=== PATIENT | male | born 1965 | race Caucasian/White ===

== ENCOUNTER 2020-07-25 07:32 | Day surgery (SDC) | payer BC, SELFPAY ==
[2020-07-20 15:20] VITALS: BMI 26.9
--- NOTE | 2020-07-24 09:46 | P.CONAN_ITS ---
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 Surgical History Surgical History Hx of colonoscopy Social History Social History Smoking Status: Former smoker Smoking Quit Date: > 10 yrs ago Use of substances other than those prescribed or required for medical reasons: No Advance Directives: No Meds Allergies Allergy/AdvReac Type Severity Reaction Status Date / Time Codeine Sulfate Allergy Unknown nauseated Uncoded 04/11/20 00:00 Home Medications Medication Instructions Recorded Confirmed Type acetaminophen [Tylenol] 650 mg PO Q6H PRN 07/20/20 07/20/20 History ascorbic acid (vitamin C) [Vitamin 500 mg PO DAILY 07/20/20 07/20/20 History C-Madison Hips-Acerola] setnxeb-nos-dvuzf-tenof alafen 1 tab PO DAILY 07/20/20 07/20/20 History [Genvoya] multivitamin 1 cap PO DAILY 07/20/20 07/20/20 History Exam Exam Date and Time: July 24, 2020 0946 Height,Weight and Vital Signs: Height 5 ft 9 in Weight 82.554 kg Pertinent Lab Results Pertinent Lab Results: Laboratory Tests 04/05/20 04/05/20 04/05/20 13:55 13:55 13:55 WBC 6.7 Hgb 14.1 Hct 42.4 Plt Count 244 Sodium 140 Potassium 4.2 Chloride 105 Bicarbonate 26 BUN 27 H Creatinine 1.14 Total Lymphocytes 2740 % CD3 Cells 74 Absolute CD3 Count 2015 % CD4 Cells 42 Absolute CD4 Count 1144 T-Lymph CD4/CD8 Ratio 1.21 % CD8 Cells 35 Absolute CD8 Count 949 Assessment and Plan Assessment Anesthesia Assessment: Chart Reviewed Documented by User: Sandra Muniz 07/25/20 08:24 [facility] Past Medical History Medical History 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 Surgical History Surgical History Hx of colonoscopy Social History Social History Smoking Status: Former smoker Smoking Quit Date: > 10 yrs ago Use of substances other than those prescribed or required for medical reasons: No Advance Directives: No Meds Allergies Allergy/AdvReac Type Severity Reaction Status Date / Time Codeine Sulfate Allergy Unknown nauseated Uncoded 04/11/20 00:00 Home Medications Medication Instructions Recorded Confirmed Type acetaminophen [Tylenol] 650 mg PO Q6H PRN 07/20/20 07/20/20 History ascorbic acid (vitamin C) [Vitamin 500 mg PO DAILY 07/20/20 07/20/20 History C-Madison Hips-Acerola] swytfyz-jyk-ileip-tenof alafen 1 tab PO DAILY 07/20/20 07/20/20 History [Genvoya] multivitamin 1 cap PO DAILY 07/20/20 07/20/20 History Exam Narrative Narrative: brown Airway Mallampati Class: I TM Dist: >3cm Neck ROM: Full Loose/Missing/Broken Teeth: No Heart: RRR Lungs: CTA Assessment and Plan Assessment Anesthesia Assessment: Anesthesia Plan Discussed and Chart Reviewed Final Anesthetic Review NPO: Yes ASA Class: II Final Preanesthetic Review: Meds/Allgs Chart Reviewed and Consent Obtained/Reviewed Patient Risk: Intermediate Procedure Risk: Low Anesthetic Plan Anesthetic Plan: MAC: Disposition: Standard PACU
--- NOTE | 2020-07-25 07:53 | PC.NURSE ---
md carlos aware of patient not knowing what his output looks like this morning. denies eating food yesterday.
[2020-07-25 07:54] VITALS: BP 145/92; PULSE 63; RESP 16; TEMP 35.9; O2SAT 99
--- NOTE | 2020-07-25 08:01 | P.HPSUR_ITS ---
Pre-Procedural Eval Section B Chief Complaint: Screening Details of Present Illness: screening Relevant Family History (Specify if Yes): No Relevant Social History: None Present Medications: see Short Stay Collaborative assessment Medical History: Significant History (see H&P no changes) History of Previous Operations: No relevant previous surgery Allergies: Allergies Allergy/AdvReac Type Severity Reaction Status Date / Time Codeine Sulfate Allergy Unknown nauseated Uncoded 04/11/20 00:00 Review of Systems Sugical H&P ROS: Negative: Constitution, Cardiovascular, Respiratory, Neurological, Psychiatric, Hem-Onc, Allergic/Immunologic, Gastrointestinal, Gen itourinary, Musculoskeletal, Integumentary, Endocrine and Eyes/Ears/Nose/Throat Exam Surgical H&P Exam: Normal: HEENT, Normal: Heart, Normal: Lungs, Normal: Extremities, Normal: Abdomen, Normal: Skin and Normal: Neurological Plan Diagnosis/Plan: Unchanged Patient has been examined and remains a candidate for the planned procedure
[2020-07-25] MEDS: Lactated Ringers 1,000 ML 100 ML IVCONT (08:03)
[2020-07-25 08:37] VITALS: BP 90/50; PULSE 52; RESP 16; TEMP 36.2; O2SAT 97
--- NOTE | 2020-07-25 08:46 | PM.OP ---
Brief Operative Note Date of procedure: 07/25/20 Pre-op diagnosis: screening Post-op diagnosis: other (colon polyp) Procedure: colonoscopy Surgeon: Jesse Puente Anesthesia: MAC Estimated blood loss (mL): 2 Pathology: other (polyp 60 cm) Condition: stable Disposition: PACU
[2020-07-25 08:52] VITALS: BP 119/64; PULSE 53; RESP 16; TEMP 36.2; O2SAT 97
--- NOTE | 2020-07-25 09:17 | HO.POSTANES ---
Post Anesthesia Evaluation Post Anesthesia Evaluation Vital Signs: Vital Signs Temp Pulse Resp BP Pulse Ox 07/25/20 08:52 97.1 F 53 16 119/64 97 07/25/20 08:37 97.1 F 52 16 90/50 L 97 07/25/20 07:54 96.6 F L 63 16 145/92 H 99 Anesthesia: Monitored Mental Status: Awake Pain Control: Satisfactory Nausea/Vomiting: None Hydration: Adequate Anesthesia-Related Issues: No Anes. Related Issues
[2020-07-25 09:45] LABS: MANUAL DIFF FLAG NO
[2020-07-25 09:56] LABS: Basophils Percent Auto 0.4 % (0-2); Eosinophils Absolute Auto 0.1 X10*3/uL (0.0-0.4); Eosinophils Percent Auto 1.5 % (0-4); Hematocrit 43.7 % (42-52); Hemoglobin 14.4 g/dl (14.0-18.0); Imm Gran Abs Auto 0.01 X10*3/uL (0.00-0.03); Imm Gran Pct Auto 0.2 % (0.0-0.4); Lymphocytes Absolute Auto 2.2 X10*3/uL (1.2-4.9); Lymphocytes Percent Auto 39.9 % (20-40); Mean Corpuscular Hemoglobin 32.5 pg (27.0-33.0); Mean Corpuscular Volume 98.6 fL (80-98); Mean Platelet Volume 9.1 fL (9.4-12.4); Monocytes Absolute Auto 0.5 X10*3/uL (0.1-1.2); Monocytes Percent Auto 9.2 % (2-11); Neutrophils Absolute Auto 2.7 X10*3/uL (2.0-8.3); Neutrophils Percent Auto 48.8 % (45-73); Platelet Count 232 X10*3/uL (160-400); Red Blood Count 4.43 X10*6/uL (4.60-5.80); Red Cell Distribution Width 12.4 % (11.0-16.0); White Blood Count 5.5 X10*3/uL (4.8-10.8)
[2020-07-25 10:43] LABS: Alanine Aminotransferase 22 U/L (0-40); Albumin Level 4.2 g/dL (3.5-5.0); Alkaline Phosphatase 65 U/L (39-117); Anion Gap 13 (12-20); Aspartate Amino Transferase 37 U/L (5-37); Bilirubin Total 0.6 mg/dL (0.0-1.0); Blood Urea Nitrogen 17 mg/dL (9-16); Calcium 8.7 mg/dL (8.4-10.2); Carbon Dioxide 27 mmol/L (22-29); Chloride 104 mmol/L (96-108); Cholesterol 191 mg/dL; Estimated Glomerular Filt Rate 56; Glucose Fasting 88 mg/dL (60-99); HDL Cholesterol 67 mg/dL; LDL Cholesterol Calculated 112 mg/dl; Potassium 4.5 mmol/l (3.3-5.1); Sodium 139 mmol/L (135-145); Triglycerides 61 mg/dL
[2020-07-25 10:57] LABS: Prostate Specific Antigen Scr 3.49 ng/mL (<0.05-4.0); T4 Thyroxine 4.2 ug/dL (4.5-12.0); Thyroid Stimulating Hormone 1.54 mIU/mL (0.32-4.0)
--- NOTE | 2020-07-25 11:02 | OP_ITS ---
SURGEON: Jesse Puente MD INDICATIONS: Colon cancer screening and prior history of adenomatous colon polyps. PREOPERATIVE DIAGNOSIS: POSTOPERATIVE DIAGNOSIS: PROCEDURE PERFORMED: Colonoscopy to the terminal ileum with biopsy. ESTIMATED BLOOD LOSS: COMPLICATIONS: ANESTHESIA: ASSISTANTS: SPECIMENS: MEDICATIONS: Monitored anesthesia care. PROCEDURE DESCRIPTION: The history and physical performed. The risks and benefits of the procedure were explained to the patient. Informed consent was obtained. The patient was placed in left lateral decubitus position. A digital rectal exam was performed and was found to be normal. The Olympus pediatric video colonoscope was introduced into the rectum and advanced to the cecum without difficulty. The cecum was identified by transillumination, palpation, and identification of ileocecal valve. Examination was performed and the scope was removed. He tolerated the procedure well and returned to recovery area in stable condition. FINDINGS: The terminal ileum was normal. The visualized colonic mucosa was normal. The quality of prep was good. A single polyp at 60 cm measuring less than 5 mm was removed with biopsy forceps. Retroflexed examination was normal. External and internal rectal examination showed no condyloma. There were moderate-sized internal hemorrhoids. IMPRESSION: Colon polyp. RECOMMENDATION: Follow up the biopsy results. MD FRANKLIN Perera/KARISHMA / [id number]
[2020-07-25 11:14] LABS: Folate 18.9 ng/mL (> or = 4.0); Vitamin B12 1136 pg/mL (200-900)
== END 2020-07-25 09:38 | disposition home or self-care (01) ==
PROVIDERS: PCP Internal Medicine; Visit Provider Internal Medicine Gastroenterology
PROC: 0DJD8ZZ Inspection of Lower Intestinal Tract, Via Natural or Artificial Opening Endoscopic (ICD-10-PCS; CPT 45378; principal; 2020-07-25 08:10)
DX: Z12.11 Encounter for screening for malignant neoplasm of colon (principal); Z86.010 Personal history of colon polyps; D12.4 Benign neoplasm of descending colon; K64.8 Other hemorrhoids; Z21 Asymptomatic human immunodeficiency virus [HIV] infection status; Z86.19 Personal history of other infectious and parasitic diseases; Z87.891 Personal history of nicotine dependence; Z79.899 Other long term (current) drug therapy; Z79.82 Long term (current) use of aspirin
CPT/HCPCS: 45380; 36415; 80053; 80061; 82607; 82746; 84153; 84436; 84443; 85025; 88305

== ENCOUNTER 2020-10-13 13:38 | Outpatient (REF) | payer BC, SELFPAY ==
[2020-10-13 15:01] LABS: MANUAL DIFF FLAG NO
[2020-10-13 15:15] LABS: Basophils Percent Auto 0.3 % (0-2); Eosinophils Absolute Auto 0.1 X10*3/uL (0.0-0.4); Eosinophils Percent Auto 1.4 % (0-4); Hematocrit 43.4 % (42-52); Hemoglobin 14.6 g/dl (14.0-18.0); Imm Gran Abs Auto 0.03 X10*3/uL (0.00-0.03); Imm Gran Pct Auto 0.4 % (0.0-0.4); Lymphocytes Absolute Auto 2.7 X10*3/uL (1.2-4.9); Mean Corpuscular HGB Conc 33.6 g/dl (31.0-36.0); Mean Corpuscular Hemoglobin 32.7 pg (27.0-33.0); Mean Corpuscular Volume 97.3 fL (80-98); Mean Platelet Volume 9.4 fL (9.4-12.4); Monocytes Absolute Auto 0.5 X10*3/uL (0.1-1.2); Monocytes Percent Auto 7.6 % (2-11); Neutrophils Absolute Auto 3.6 X10*3/uL (2.0-8.3); Neutrophils Percent Auto 51.3 % (45-73); Platelet Count 246 X10*3/uL (160-400); Red Blood Count 4.46 X10*6/uL (4.60-5.80); Red Cell Distribution Width 12.2 % (11.0-16.0); White Blood Count 6.9 X10*3/uL (4.8-10.8)
[2020-10-13 15:40] LABS: Alanine Aminotransferase 19 U/L (0-40); Albumin Level 4.4 g/dL (3.5-5.0); Alkaline Phosphatase 68 U/L (39-117); Anion Gap 13 (12-20); Aspartate Amino Transferase 32 U/L (5-37); Bilirubin Direct 0.2 mg/dL (0.0-0.5); Bilirubin Total 0.5 mg/dL (0.0-1.0); Blood Urea Nitrogen 29 mg/dL (9-16); Calcium 8.8 mg/dL (8.4-10.2); Carbon Dioxide 29 mmol/L (22-29); Chloride 105 mmol/L (96-108); Estimated Glomerular Filt Rate > 60; Glucose Random 82 mg/dL (60-115); Potassium 4.6 mmol/l (3.3-5.1); Sodium 142 mmol/L (135-145); Total Protein 7.5 g/dL (6.5-8.0)
[2020-10-13 16:00] LABS: Syphilis Screen Nonreactive (Nonreactive)
[2020-10-15 10:31] LABS: C. trachomatis RNA TMA NOT DETECTED; N. gonorrhoeae RNA TMA NOT DETECTED
[2020-10-15 14:12] LABS: HIV RNA PCR Qn Copies <20 NOT DETECTED copies/mL (NOT DETECTED); HIV RNA PCR Qn Log Copies <1.30 NOT DETECTED (NOT DETECTED)
[2020-10-16 13:46] LABS: Absolute CD3 Count 2071 cells/uL (840-3060); Absolute CD4 Count 1152 cells/uL (490-1740); Absolute CD8 Count 954 cells/uL (180-1170); Absolute Lymphocytes 2739 cells/uL (850-3900); CD4 CD8 Ratio 1.21 (0.86-5.00); Percent CD3 Cells 76 % (57-85); Percent CD4 Cells 42 % (30-61); Percent CD8 Cells 35 % (12-42)
== END 2020-10-13 13:39 | disposition home or self-care (01) ==
LOC: HO.LAB 13:38
PROVIDERS: PCP Internal Medicine; Visit Provider Internal Medicine
DX: Z21 Asymptomatic human immunodeficiency virus [HIV] infection status (principal)
CPT/HCPCS: 36415; 80048; 80076; 85025; 86359; 86360; 86780; 87491; 87536; 87591

== ENCOUNTER → 2020-10-25 14:00 | Outpatient (BNVA) | payer BC, SELFPAY | PROVIDERS: PCP Internal Medicine; Visit Provider Internal Medicine | DX: Z76.89 Persons encountering health services in other specified circumstances (principal) ==

== ENCOUNTER 2020-12-25 14:03 | Outpatient (REF) | payer BC, SELFPAY ==
--- NOTE | 2020-12-25 16:20 | MHC.AU.ANR ---
Adult Audiological Evaluation Date of Visit: 12/25/20 Reason for Appointment: Mr. Saul was seen today for an audiological evaluation due to concerns for tinnitus in the right ear. He reports that the tinnitus in the right ear began ~one month ago and is constant. He notes that he previously experienced tinnitus ~10 years ago which then subsided. He denies any concerns for his hearing and denies any changes to his medications or medical history around the time the tinnitus began. He notes that Dr. Richardson cleaned his ears at a recent visit. Does patient feel they have a hearing loss?: No Has hearing been tested previously?: Yes Previous Hearing Test Results: Patient reports hearing was tested 10 years ago in [place]. Results not available to be reviewed today. Hearing Handicap Inventory: HHIE SCORE: 0 Based on HHIE score, patient has: No perceived hearing handicap Ear History: History of Ear Wax Buildup: Both Ears Bothersome Tinnitus/Ringing/Noises in Ears: Both Ears Blocked/Full Sensation in Ear(s): Both Ears Medical History: Medical History: AIDS/HIV Medical History (Other): Patient notes that he used to frequently get otitis externa due to swimming, but now puts drops of rubbing alcohol in his ears after swimming and hasn't had any cases of otitis externa since. Allergies: Codeine Sulfate Medication List: Genvoya, multivitamin, vitamin C, Tylenol and Sudafed PRN Otoscopy: Right Ear: Unremarkable Left Ear: Unremarkable Tympanometry: Tympanometry performed due to: Patient reports sensation that ears are blocked/plugged. Right Ear: Hypercompliant Middle Ear System (Type Ad) Left Ear: Normal Middle Ear System (Type A) Hearing Evaluation: Transducer(s) Used: Insert Earphones, Bone Conduction Method: Conventional Audiometry Stimuli Used: Pure Tones Right Ear: Description of Hearing: Normal hearing from 250-3000 Hz, sloping to a mild sensorineural hearing loss at 4000 Hz and a moderate hearing loss from 0489-4881 Hz. Left Ear: Description of Hearing: Normal hearing from 250-4000 Hz, sloping to a mild hearing loss from 8940-8675 Hz. Speech Recognition Threshold (SRT): Method Used: Monitored Live Voice Stimuli Used: Spondee Words Right Ear: 10 dBHL Left Ear: 10 dBHL Word Discrimination: Method: Recorded Lists Word Lists Used: NU-6 Right Ear: 100% at 50 dBHL Left Ear: 100% at 50 dBHL Recommendations: Audiological re-evaluation if changes are noted. Audiological re-evaluation in one year. Amplification is not warranted at this time. Recommend a hearing re-evaluation to monitor slight asymmetry (right ear worse than left) in one year, or sooner if Mr. Saul notices any changes to his hearing or tinnitus. Diagnosis: Primary Diagnosis: H90.3 Bilateral Sensorineural Hearing Loss Secondary Diagnosis: H93.11 Tinnitus, Right Ear Services Performed: Services Performed: Comprehensive Audiological Evaluation (CPT 66602) Tympanometry (CPT 10738) Signature: Provider: Sarwat Orr, CCC-A
== END 2020-12-25 14:04 | disposition home or self-care (01) ==
LOC: HO.SH 14:03
PROVIDERS: Visit Provider Internal Medicine
DX: H90.3 Sensorineural hearing loss, bilateral (principal); H93.11 Tinnitus, right ear
CPT/HCPCS: 92557; 92567

== ENCOUNTER 2021-04-04 13:38 | Outpatient (REF) | payer BC, SELFPAY ==
[2021-04-04 14:38] LABS: Hematocrit 43.7 % (42-52); Hemoglobin 14.8 g/dl (14.0-18.0); Mean Corpuscular HGB Conc 33.9 g/dl (31.0-36.0); Mean Corpuscular Hemoglobin 32.9 pg (27.0-33.0); Mean Corpuscular Volume 97.1 fL (80-98); Mean Platelet Volume 9.5 fL (9.4-12.4); Platelet Count 231 X10*3/uL (160-400); Red Cell Distribution Width 12.3 % (11.0-16.0); White Blood Count 7.6 X10*3/uL (4.8-10.8)
[2021-04-04 14:58] LABS: Alanine Aminotransferase 17 U/L (0-40); Albumin Level 4.4 g/dL (3.5-5.0); Alkaline Phosphatase 74 U/L (39-117); Anion Gap 15 (12-20); Aspartate Amino Transferase 27 U/L (5-37); Bilirubin Direct 0.2 mg/dL (0.0-0.5); Bilirubin Total 0.5 mg/dL (0.0-1.0); Blood Urea Nitrogen 35 mg/dL (9-16); Calcium 9.6 mg/dL (8.4-10.2); Carbon Dioxide 24 mmol/L (22-29); Chloride 106 mmol/L (96-108); Estimated Glomerular Filt Rate 58; Glucose Random 78 mg/dL (60-115); Potassium 4.6 mmol/L (3.3-5.1); Sodium 140 mmol/L (135-145); Total Protein 7.6 g/dL (6.5-8.0)
[2021-04-05 11:48] LABS: ~HepC Num1 0.08 S/CO (0.00-0.79); ~Hepatitis C Antibody Nonreactive (Nonreactive)
[2021-04-05 14:56] LABS: Absolute CD3 Count 1955 cells/uL (840-3060); Absolute CD4 Count 1027 cells/uL (490-1740); Absolute CD8 Count 949 cells/uL (180-1170); Absolute Lymphocytes 2591 cells/uL (850-3900); CD4 CD8 Ratio 1.08 (0.86-5.00); Percent CD3 Cells 75 % (57-85); Percent CD4 Cells 40 % (30-61); Percent CD8 Cells 37 % (12-42)
[2021-04-07 16:47] LABS: HIV RNA PCR Qn Copies <20 NOT DETECTED copies/mL (NOT DETECTED); HIV RNA PCR Qn Log Copies <1.30 NOT DETECTED (NOT DETECTED)
== END 2021-04-04 13:39 | disposition home or self-care (01) ==
LOC: HO.LAB 13:38
PROVIDERS: PCP Internal Medicine; Visit Provider Internal Medicine
DX: B20 Human immunodeficiency virus [HIV] disease (principal)
CPT/HCPCS: 36415; 80048; 80076; 85027; 86359; 86360; 86803; 87536

== ENCOUNTER → 2021-04-18 14:02 | Outpatient (BNVA) | payer BC, SELFPAY | PROVIDERS: PCP Internal Medicine; Visit Provider Internal Medicine | DX: B20 Human immunodeficiency virus [HIV] disease (principal); E78.00 Pure hypercholesterolemia, unspecified; Z23 Encounter for immunization | CPT/HCPCS: 90471; 90715 ==

== ENCOUNTER 2021-10-02 14:21 | Outpatient (REF) | payer BC, SELFPAY ==
[2021-10-02 14:39] LABS: MANUAL DIFF FLAG NO
[2021-10-02 15:05] LABS: Basophils Percent Auto 0.2 % (0-2); Eosinophils Absolute Auto 0.1 X10*3/uL (0.0-0.4); Eosinophils Percent Auto 0.9 % (0-4); Hematocrit 43.7 % (42.0-52.0); Hemoglobin 14.5 g/dl (14.0-18.0); Imm Gran Abs Auto 0.02 X10*3/uL (0.00-0.03); Imm Gran Pct Auto 0.2 % (0.0-0.4); Lymphocytes Absolute Auto 2.3 X10*3/uL (1.2-4.9); Mean Corpuscular HGB Conc 33.2 g/dl (31.0-36.0); Mean Corpuscular Hemoglobin 32.7 pg (27.0-33.0); Mean Corpuscular Volume 98.6 fL (80.0-98.0); Mean Platelet Volume 9.2 fL (9.4-12.4); Monocytes Absolute Auto 0.5 X10*3/uL (0.1-1.2); Neutrophils Absolute Auto 5.3 x10*3/uL (2.0-8.3); Neutrophils Percent Auto 64.7 % (45-73); Platelet Count 249 X10*3/uL (160-400); Red Blood Count 4.43 X10*6/uL (4.60-5.80); Red Cell Distribution Width 12.5 % (11.0-16.0); White Blood Count 8.2 X10*3/uL (4.8-10.8)
[2021-10-02 15:28] LABS: Alanine Aminotransferase 18 U/L (0-40); Albumin Level 4.3 g/dL (3.5-5.0); Alkaline Phosphatase 67 U/L (39-117); Anion Gap 12 (12-20); Aspartate Amino Transferase 24 U/L (5-37); Bilirubin Total 0.4 mg/dL (0.0-1.0); Blood Urea Nitrogen 28 mg/dL (9-16); Calcium 9.5 mg/dL (8.4-10.2); Carbon Dioxide 28 mmol/L (22-29); Chloride 105 mmol/L (96-108); Estimated Glomerular Filt Rate 58; Glucose Random 79 mg/dL (60-115); Potassium 4.2 mmol/L (3.3-5.1); Sodium 141 mmol/L (135-145); Total Protein 7.4 g/dL (6.5-8.0)
[2021-10-02 15:59] LABS: Free T4 (Free Thyroxine) 0.85 ng/dL (0.71-1.85); Prostate Specific Antigen Scr 4.71 ng/mL (<0.05-4.0); Thyroid Stimulating Hormone 1.25 uIU/mL (0.32-4.0)
[2021-10-03 04:13] LABS: Syphilis Screen Nonreactive (Nonreactive)
[2021-10-03 04:16] LABS: ~HepC Num1 0.11 S/CO (0.00-0.79); ~Hepatitis C Antibody Nonreactive (Nonreactive)
[2021-10-03 05:32] LABS: CT PCR NOT DETECTED (Not Detect.); NG PCR NOT DETECTED (Not Detect.)
[2021-10-03 11:37] LABS: Absolute CD3 Count 1788 cells/uL (840-3060); Absolute CD4 Count 1045 cells/uL (490-1740); Absolute CD8 Count 798 cells/uL (180-1170); Absolute Lymphocytes 2387 cells/uL (850-3900); CD4 CD8 Ratio 1.31 (0.86-5.00); Percent CD3 Cells 75 % (57-85); Percent CD4 Cells 44 % (30-61); Percent CD8 Cells 33 % (12-42)
[2021-10-04 08:41] LABS: HIV RNA PCR Qn Copies <20 NOT DETECTED copies/mL (NOT DETECTED); HIV RNA PCR Qn Log Copies <1.30 NOT DETECTED (NOT DETECTED)
== END 2021-10-02 14:22 | disposition home or self-care (01) ==
LOC: HO.LAB 14:21
PROVIDERS: PCP Internal Medicine; Visit Provider Internal Medicine
DX: B20 Human immunodeficiency virus [HIV] disease (principal); E78.00 Pure hypercholesterolemia, unspecified; N28.9 Disorder of kidney and ureter, unspecified; R97.20 Elevated prostate specific antigen [PSA]; Z12.5 Encounter for screening for malignant neoplasm of prostate
CPT/HCPCS: 36415; 80053; 84153; 84439; 84443; 85025; 86359; 86360; 86780; 86803; 87491; 87536; 87591

== ENCOUNTER → 2021-10-17 14:04 | Outpatient (BNVA) | payer BC, SELFPAY | PROVIDERS: Visit Provider Internal Medicine ==

== ENCOUNTER 2022-03-07 14:05 | Outpatient (REF) | payer BC, SELFPAY ==
[2022-03-07 14:24] LABS: MANUAL DIFF FLAG NO
[2022-03-07 14:32] LABS: Basophils Percent Auto 0.2 % (0-2); Eosinophils Absolute Auto 0.1 X10*3/uL (0.0-0.4); Eosinophils Percent Auto 1.5 % (0-4); Hemoglobin 13.9 g/dl (14.0-18.0); Imm Gran Abs Auto 0.01 X10*3/uL (0.00-0.03); Imm Gran Pct Auto 0.2 % (0.0-0.4); Lymphocytes Absolute Auto 2.4 X10*3/uL (1.2-4.9); Lymphocytes Percent Auto 40.9 % (20-40); Mean Corpuscular HGB Conc 33.9 g/dl (31.0-36.0); Mean Corpuscular Volume 97.4 fL (80.0-98.0); Mean Platelet Volume 9.3 fL (9.4-12.4); Monocytes Absolute Auto 0.4 X10*3/uL (0.1-1.2); Neutrophils Percent Auto 50.2 % (45-73); Platelet Count 222 X10*3/uL (160-400); Red Blood Count 4.21 X10*6/uL (4.60-5.80); Red Cell Distribution Width 12.4 % (11.0-16.0)
[2022-03-07 14:59] LABS: Alanine Aminotransferase 18 U/L (0-40); Albumin Level 4.1 g/dL (3.5-5.0); Alkaline Phosphatase 61 U/L (39-117); Anion Gap 12 (12-20); Aspartate Amino Transferase 28 U/L (5-37); Bilirubin Total 0.4 mg/dL (0.0-1.0); Blood Urea Nitrogen 38 mg/dL (9-16); Calcium 9.1 mg/dL (8.4-10.2); Carbon Dioxide 27 mmol/L (22-29); Chloride 105 mmol/L (96-108); Cholesterol 169 mg/dL; Estimated Glomerular Filt Rate > 60; Glucose Random 81 mg/dL (60-115); HDL Cholesterol 58 mg/dL; LDL Cholesterol Calculated 70 mg/dl; Potassium 4.3 mmol/L (3.3-5.1); Sodium 140 mmol/L (135-145); Total Protein 7.2 g/dL (6.5-8.0); Triglycerides 205 mg/dL
[2022-03-07 15:19] LABS: Free T4 (Free Thyroxine) 0.86 ng/dL (0.71-1.85); PSA,Total (Free>4and<10) 3.57 ng/mL (0.00-4.00); Thyroid Stimulating Hormone 1.41 uIU/mL (0.32-4.0)
[2022-03-07 15:34] LABS: Folate 15.8 ng/mL (> or = 4.0); Vitamin B12 814 pg/mL (200-900)
[2022-03-07 16:44] LABS: CT PCR NOT DETECTED (Not Detect.); NG PCR NOT DETECTED (Not Detect.)
[2022-03-08 08:15] LABS: Syphilis Screen Nonreactive (Nonreactive)
[2022-03-09 15:01] LABS: HIV RNA PCR Qn Copies <20 DETECTED copies/mL (NOT DETECTED); HIV RNA PCR Qn Log Copies <1.30 DETECTED (NOT DETECTED)
[2022-03-11 15:16] LABS: Absolute CD3 Count 1934 cells/uL (840-3060); Absolute CD4 Count 1085 cells/uL (490-1740); Absolute CD8 Count 896 cells/uL (180-1170); Absolute Lymphocytes 2543 cells/uL (850-3900); CD4 CD8 Ratio 1.21 (0.86-5.00); Percent CD3 Cells 76 % (57-85); Percent CD4 Cells 43 % (30-61); Percent CD8 Cells 35 % (12-42)
== END 2022-03-07 14:06 | disposition home or self-care (01) ==
LOC: HO.LAB 14:05
PROVIDERS: Absent Provider Internal Medicine; PCP Internal Medicine; Visit Provider Internal Medicine
DX: Z12.5 Encounter for screening for malignant neoplasm of prostate (principal); B20 Human immunodeficiency virus [HIV] disease; R97.20 Elevated prostate specific antigen [PSA]; E78.00 Pure hypercholesterolemia, unspecified
CPT/HCPCS: 36415; 80053; 80061; 82607; 82746; 84153; 84439; 84443; 85025; 86359; 86360; 86780; 87491; 87536; 87591

== ENCOUNTER 2022-10-03 13:50 | Outpatient (REF) | payer BC, SELFPAY ==
[2022-10-03 14:27] LABS: MANUAL DIFF FLAG NO
[2022-10-03 14:28] LABS: Basophils Percent Auto 0.3 % (0-2); Eosinophils Absolute Auto 0.1 X10*3/uL (0.0-0.4); Eosinophils Percent Auto 1.3 % (0-4); Hematocrit 44.7 % (42.0-52.0); Hemoglobin 14.9 g/dl (14.0-18.0); Imm Gran Abs Auto 0.02 X10*3/uL (0.00-0.03); Imm Gran Pct Auto 0.3 % (0.0-0.4); Lymphocytes Absolute Auto 2.7 X10*3/uL (1.2-4.9); Lymphocytes Percent Auto 37.6 % (20-40); Mean Corpuscular HGB Conc 33.3 g/dl (31.0-36.0); Mean Corpuscular Hemoglobin 32.5 pg (27.0-33.0); Mean Corpuscular Volume 97.6 fL (80.0-98.0); Monocytes Absolute Auto 0.6 X10*3/uL (0.1-1.2); Monocytes Percent Auto 8.3 % (2-11); Neutrophils Absolute Auto 3.7 x10*3/uL (2.0-8.3); Neutrophils Percent Auto 52.2 % (45-73); Platelet Count 220 X10*3/uL (160-400); Red Blood Count 4.58 X10*6/uL (4.60-5.80); Red Cell Distribution Width 12.5 % (11.0-16.0); White Blood Count 7.2 X10*3/uL (4.8-10.8)
[2022-10-03 15:07] LABS: Creatinine Urine 15.17 mg/dL; Microalbumin Urine < 5.0 mg/L
[2022-10-03 15:16] LABS: Alanine Aminotransferase 16 U/L (0-40); Albumin Level 4.4 g/dL (3.5-5.0); Alkaline Phosphatase 69 U/L (39-117); Anion Gap 10 (12-20); Aspartate Amino Transferase 29 U/L (5-37); Bilirubin Direct < 0.2 mg/dL (0.0-0.5); Bilirubin Total 0.4 mg/dL (0.0-1.0); Blood Urea Nitrogen 35 mg/dL (9-16); Calcium 9.3 mg/dL (8.4-10.2); Carbon Dioxide 29 mmol/L (22-29); Chloride 106 mmol/L (96-108); Estimated Glomerular Filt Rate > 60; Glucose Random 72 mg/dL (60-115); Iron 122 mcg/dL (45-160); Percent Iron Saturation 42 % (15-50); Potassium 4.3 mmol/L (3.3-5.1); Sodium 141 mmol/L (135-145); Total Iron Binding Capacity 289 mcg/dL (228-428); Total Protein 7.6 g/dL (6.5-8.0); Unsaturated Iron Binding 167 ug/dL
[2022-10-03 15:37] LABS: Vitamin B12 891 pg/mL (200-900)
[2022-10-03 15:39] LABS: PSA,Total (Free>4and<10) 4.58 ng/mL (0.00-4.00)
[2022-10-03 17:12] LABS: CT PCR NOT DETECTED (Not Detect.); NG PCR NOT DETECTED (Not Detect.)
[2022-10-04 08:55] LABS: Syphilis Screen Nonreactive (Nonreactive)
[2022-10-04 09:32] LABS: ~HepC Num1 0.09 S/CO (0.00-0.79); ~Hepatitis C Antibody Nonreactive (Nonreactive)
[2022-10-07 12:24] LABS: Free Prostate Spec Ag 0.8 ng/mL; Percent Free Prostate Spec Ag 20 % (calc) (>25); Prostate Specific Ag Total 4.1 ng/mL (< OR = 4.0)
[2022-10-07 15:48] LABS: Absolute CD3 Count 2076 cells/uL (840-3060); Absolute CD4 Count 1173 cells/uL (490-1740); Absolute CD8 Count 971 cells/uL (180-1170); Absolute Lymphocytes 2685 cells/uL (850-3900); CD4 CD8 Ratio 1.21 (0.86-5.00); Percent CD3 Cells 77 % (57-85); Percent CD4 Cells 44 % (30-61); Percent CD8 Cells 36 % (12-42)
[2022-10-08 14:53] LABS: HIV RNA PCR Qn Copies NOT DETECTED copies/mL (NOT DETECTED); HIV RNA PCR Qn Log Copies NOT DETECTED (NOT DETECTED)
[2022-10-08 16:13] LABS: Vitamin D 25-OH, D2 <4 ng/mL; Vitamin D 25-OH, D3 47 ng/mL; Vitamin D 25-OH, Total 47 ng/mL (30-100)
== END 2022-10-03 13:51 | disposition home or self-care (01) ==
LOC: HO.LAB 13:50
PROVIDERS: Visit Provider Internal Medicine
DX: B20 Human immunodeficiency virus [HIV] disease (principal); N28.9 Disorder of kidney and ureter, unspecified; Z12.5 Encounter for screening for malignant neoplasm of prostate
CPT/HCPCS: 0353U; 36415; 80048; 80076; 82043; 82306; 82607; 83540; 84153; 84154; 85025; 86359; 86360; 86780; 86803; 87536

== ENCOUNTER → 2022-10-16 14:07 | Outpatient (BNVA) | payer BC, SELFPAY | PROVIDERS: Visit Provider Internal Medicine | DX: B20 Human immunodeficiency virus [HIV] disease (principal); N28.9 Disorder of kidney and ureter, unspecified ==

== ENCOUNTER 2023-03-11 14:01 | Outpatient (REF) | payer BC, SELFPAY ==
[2023-03-12 06:10] LABS: Syphilis Screen Nonreactive (Nonreactive)
[2023-03-12 13:08] LABS: Absolute CD3 Count 1946 cells/uL (840-3060); Absolute CD4 Count 1097 cells/uL (490-1740); Absolute CD8 Count 876 cells/uL (180-1170); Absolute Lymphocytes 2519 cells/uL (850-3900); CD4 CD8 Ratio 1.25 (0.86-5.00); Percent CD3 Cells 77 % (57-85); Percent CD4 Cells 44 % (30-61); Percent CD8 Cells 35 % (12-42)
[2023-03-15 13:18] LABS: HIV RNA PCR Qn Copies NOT DETECTED copies/mL (NOT DETECTED); HIV RNA PCR Qn Log Copies NOT DETECTED (NOT DETECTED)
== END 2023-03-11 14:02 | disposition home or self-care (01) ==
LOC: HO.LAB 14:01
PROVIDERS: PCP Internal Medicine; Visit Provider Internal Medicine
DX: B20 Human immunodeficiency virus [HIV] disease (principal)
CPT/HCPCS: 36415; 86359; 86360; 86780; 87536

== ENCOUNTER 2023-06-12 13:33 | Outpatient (AMB) | payer BC, SELFPAY ==
[2023-06-12 13:34] VITALS: BP 120/72; PULSE 60; O2SAT 98; BMI 26.7
--- NOTE | 2023-06-12 13:34 | MHC.PC.OV ---
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 Accompanied by: Self / Same As Patient Allergies Codeine Sulfate Allergy (Unknown, Uncoded 06/12/23 13:35) nauseated Medication List - Last Reconciled 06/12/23 by Thad Richardson MD acetaminophen (Tylenol) 650 mg PO Q6H PRN ascorbic acid (vitamin C) 500 mg PO DAILY clotrimazole-betamethasone 1-0.05 % 1 appl topical BID onzdfmx-pjk-vndop-tenof alafen [id number] mg (Genvoya) 1 tab PO DAILY 90 days multivitamin 1 cap PO DAILY Tobacco use date assessed: 06/12/23 Dental Screening Dental Screen Date: 06/12/23 Did you have a dental visit in the last 12 months?: Yes Did you have a dental problem in the last 6 months where you did not have access to dental care?: No Was dental information given to patient?: Patient has dentist HPI Annual Exam HPI Details 57-year-old male with hypercholesterolemia mild anemia and HIV infection coming in for physical exam last seen in May 2022. Patient's colonoscopy is up-to-date. 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) HIV (human immunodeficiency virus infection) HIV disease Hypercholesterolemia Renal insufficiency Surgical History H/O foot surgery Hx of colonoscopy Family History Brother Myocardial infarct Alcohol abuse Maternal Grandmother Colon cancer Father Bladder cancer Social History Housing: House Alcohol intake: never Patient Tobacco Use Status: Former Tobacco user Tobacco use type: Cigarette Years Smoked: 1987 stopped e-Cigarette/Vaping Use: Never Used Second Hand Smoke Exposure: No service: No Current occupational status: employed Cognitive needs: No Hearing needs: No Vision needs: Yes Questionnaire PHQ-9 Over the last 2 weeks, how often have you been bothered by any of the following problems? 1. Little interest or pleasure in doing things: not at all 2. Feeling down, depressed, or hopeless: not at all 3. Trouble falling or staying asleep, or sleeping too much: not at all 4. Feeling tired or having little energy: not at all 5. Poor appetite or overeating: not at all 6. Feeling bad about yourself - or that you are a failure or have let yourself or your family down: not at all 7. Trouble concentrating on things, such as reading the newspaper or watching television: not at all 8. Moving or speaking so slowly that other people could have noticed. Or the opposite - being so fidgety or restless that you have been moving around a lot more than usual: not at all 9. Thoughts that you would be better off or of hurting yourself in some way: not at all Total score: 0 Depression Screening Interpretation: Negative Source: Developed by Drs. Tyler Blackmon, Fe Delgado, Vincent De Anda and colleagues, with an educational heri from [employer]. Thrive Questionnaire Date Thrive assessed: 06/12/23 I am a: Patient What is your living situation today?: I have a steady place to live Within the past 12 months, did the food you bought not last and you didn't have the money to get more?: Never true Within the past 12 months, did you worry whether your food would run out before you got money to buy more?: Never true Do you have trouble paying for medicines?: No Do you have trouble getting transportation to medical appointments?: No Do you have trouble paying your heating and electricity bill?: No Do you have trouble taking care of your child, family member or friend?: No Do you have trouble with day-to-day activities such as bathing, preparing meals, shopping, managing finances, etc.?: No Are you currently unemployed and looking for a job?: No Are you interested in more education?: No Please select the resources that you would like help with: None Currently or been in a relationship where the following occur: no concerns reported AUDIT C Alcohol Use Questionnaire (AUDIT-C) 1. How often do you have a drink containing alcohol?: Monthly or less 2. How many drinks containing alcohol do you have on a typical day when you are drinking?: 1 or 2 3. How often do you have six or more drinks on one occasion?: Never Total Score: 1 SHANNAN-7 AMB Questionnaire SHANNAN-7 Date SHANNAN - 7 assessed: 06/12/23 Feeling nervous, anxious, or on edge: 0 = Not at all Not being able to stop or control worryin = Not at all Worrying too much about different things: 0 = Not at all Trouble relaxin = Not at all Being so restless that it is hard to sit still: 0 = Not at all Becoming easily annoyed or irritable: 0 = Not at all Feeling afraid as if something awful might happen: 0 = Not at all Total SHANNAN-7 score (0-4 normal; 5-9 mild; 10-14 moderate; 15-21 severe): 0 Source: Developed by Drs. Tyler Blackmon, Fe Delgado, Vincent De Anda and colleagues, with an educational heri from [employer]. Review of Systems Const Denies poor appetite and Denies weakness Eyes Denies no additional complaints ENT Reports Normal hearing present, Denies dizziness, Denies nasal congestion, Denies tinnitus and Denies sore throat Card Denies chest pain, Denies syncope, Denies rapid heart rate and Denies dyspnea Resp Denies cough and Denies dyspnea GI Denies change in stool character, Reports constipation, Denies diarrhea, Denies nausea and Denies vomiting Denies dysuria and Denies urinary frequency Neuro Reports Normal hearing present, Denies confusion, Denies dizziness, Denies syncope and Denies weakness Psych Denies confusion Physical exam (Primary Care) Vital Signs: Last Vital Signs Pulse 60 06/12/23 13:34 BP 120/72 06/12/23 13:34 Pulse Ox 98 06/12/23 13:34 Oxygen Delivery Method Room Air 06/12/23 13:34 Care Plan Goal for BP management: rectal exam negative, guaiac, has hemorrhoid bulge 11 oclock , prostate N BMI result Body Mass Index 26.7 Tobacco/Smoking Status: Tobacco use Status Tobacco use date assessed 06/12/23 06/12/23 13:38 Patient Tobacco Use Status Former Tobacco user 06/12/23 13:38 Tobacco use type Cigarette 06/12/23 13:38 e-Cigarette/Vaping Use Never Used 06/12/23 13:38 PHQ-9: PHQ-9 Score PHQ-9: Total score 0 06/12/23 14:01 Depression Screening Interpretation: Negative Thrive Assessment: Date of Thrive Assessment Date Thrive assessed 06/12/23 06/12/23 13:38 Currently or been in a relationship where the following occur: no concerns reported Const General: No confusion Orientation/consciousness: No confusion HENMT Other: impacted cerumen bilateral L > R TM seen intact Head: Yes normocephalic Ears: external ears normal Face and sinus: Yes normal facial exam Mouth: moist mucous membranes Throat: Yes tonsils normal Eyes Conjunctivae: conjunctivae normal Pupils: Equal, round and reactive pupils present and Pupil accommodation reflex normal Direct Ophthalmoscopy: normal light reflex Neck Neck: No lymphadenopathy Thyroid: Thyroid normal Chest Chest palpation & inspection: normal inspection of the chest Resp Effort & Inspection: normal respiratory effort and no audible wheezes Auscultation: clear to auscultation bilaterally, no crackles, no wheezes and lung sounds not diminished Cardio Rate: regular rate Rhythm: regular rhythm Peripheral pulses: radial pulses present and dorsalis pedis present GI Other: guaiac negative prostate mild enlarged Palpation (GI): no masses Auscultation: normal bowel sounds and normoactive bowel sounds Male General Exam: Yes normal external exam Skin General skin exam: no rashes or lesions noted Rashes: no rashes Neuro General: No confusion Cranial nerves: Yes Equal, round and reactive pupils present and Yes Normal hearing present Cognition (Neuro): normal cognition Gait exam (Neuro): Normal gait present Motor exam (neuro): 5/5 motor strength present throughout Deep tendon reflexes (DTR's): Right brachioradialis reflex intensity grade: 2+, Left brachioradialis reflex intensity grade: 2+, Right patellar reflex intensity grade: 2+ and Left patellar reflex intensity grade: 2+ Extrem General: No edema Assessment and Plan Assessment & Plan (1) Annual physical exam: Code(s): Z00.00 - Encounter for general adult medical examination without abnormal findings (2) HIV (human immunodeficiency virus infection): Comment: He has been doing well with CD4 count high and viral load undetectable He has no signs of androgen deficiency or renal failure He has no complaints He continues to exercise. Code(s): B20 - Human immunodeficiency virus [HIV] disease Plan: Patient continue to follow-up with [facility]. Continue with medication Genvoya (3) Hypercholesterolemia: Code(s): E78.00 - Pure hypercholesterolemia, unspecified Plan: Avoid fried foods, chicken skin, eggs, butter margarine, pastries and meat. Be it pork or beef they have a lot of cholesterol last blood work within normal limits February 2022 will need repeat testing (4) PSA elevation: Code(s): R97.20 - Elevated prostate specific antigen [PSA] Plan: Repeat testing (5) BPH (benign prostatic hyperplasia): Code(s): N40.0 - Benign prostatic hyperplasia without lower urinary tract symptoms (6) Impacted cerumen of both ears: Code(s): H61.23 - Impacted cerumen, bilateral Orders: Orders Complete Blood Count Auto Diff Today E78.00 - Pure hypercholesterolemia, unspecified Free T4 (Free Thyroxine) Today E78.00 - Pure hypercholesterolemia, unspecified Lipid Panel Today E78.00 - Pure hypercholesterolemia, unspecified Thyroid Stimulating Hormone Today E78.00 - Pure hypercholesterolemia, unspecified Prostate Specific Antigen Scr Today E78.00 - Pure hypercholesterolemia, unspecified Vitamin B12 and Folate Today E78.00 - Pure hypercholesterolemia, unspecified Comprehensive Met. Panel Today E78.00 - Pure hypercholesterolemia, unspecified Coding Level of Care Code Est Pt Prev Care 40-64y(89423) Diagnoses Annual physical exam Z00.00 HIV (human immunodeficiency virus infection) B20 Hypercholesterolemia E78.00 PSA elevation R97.20 BPH (benign prostatic hyperplasia) N40.0 Impacted cerumen of both ears H61.23
== END 2023-06-12 14:29 | disposition home or self-care (01) ==
PROVIDERS: PCP Internal Medicine; Visit Provider Internal Medicine
DX: Z00.00 Encounter for general adult medical examination without abnormal findings (principal); B20 Human immunodeficiency virus [HIV] disease; E78.00 Pure hypercholesterolemia, unspecified; R97.20 Elevated prostate specific antigen [PSA]; N40.0 Benign prostatic hyperplasia without lower urinary tract symptoms; H61.23 Impacted cerumen, bilateral
CPT/HCPCS: 99396

== ENCOUNTER 2023-10-09 13:43 | Outpatient (REF) | payer BC, SELFPAY ==
[2023-10-09 13:55] LABS: MANUAL DIFF FLAG NO
[2023-10-09 14:02] LABS: Basophils Percent Auto 0.3 % (0-2); Eosinophils Absolute Auto 0.1 X10*3/uL (0.0-0.4); Eosinophils Percent Auto 1.8 % (0-4); Hemoglobin 14.4 g/dl (14.0-18.0); Imm Gran Abs Auto 0.01 X10*3/uL (0.00-0.03); Imm Gran Pct Auto 0.2 % (0.0-0.4); Lymphocytes Absolute Auto 2.4 X10*3/uL (1.2-4.9); Lymphocytes Percent Auto 38.9 % (20-40); Mean Corpuscular HGB Conc 32.7 g/dl (31.0-36.0); Mean Corpuscular Hemoglobin 32.1 pg (27.0-33.0); Mean Platelet Volume 9.1 fL (9.4-12.4); Monocytes Absolute Auto 0.4 X10*3/uL (0.1-1.2); Monocytes Percent Auto 7.2 % (2-11); Neutrophils Absolute Auto 3.1 x10*3/uL (2.0-8.3); Neutrophils Percent Auto 51.6 % (45-73); Platelet Count 215 X10*3/uL (160-400); Red Blood Count 4.49 X10*6/uL (4.60-5.80); Red Cell Distribution Width 12.6 % (11.0-16.0); White Blood Count 6.1 X10*3/uL (4.8-10.8)
[2023-10-09 14:36] LABS: Alanine Aminotransferase 17 U/L (0-40); Albumin Level 4.4 g/dL (3.5-5.0); Alkaline Phosphatase 61 U/L (39-117); Anion Gap 11 (12-20); Aspartate Amino Transferase 28 U/L (5-37); Bilirubin Direct 0.1 mg/dL (0.0-0.5); Bilirubin Total 0.3 mg/dL (0.0-1.0); Blood Urea Nitrogen 27 mg/dL (9-16); Calcium 9.7 mg/dL (8.4-10.2); Carbon Dioxide 31 mmol/L (22-29); Chloride 105 mmol/L (96-108); Estimated Glomerular Filt Rate > 60; Glucose Random 90 mg/dL (60-115); Potassium 4.7 mmol/L (3.3-5.1); Sodium 142 mmol/L (135-145); Total Protein 7.7 g/dL (6.5-8.0)
[2023-10-10 08:13] LABS: Syphilis Screen Nonreactive (Nonreactive)
[2023-10-11 14:28] LABS: Absolute CD3 Count 1872 cells/uL (840-3060); Absolute CD4 Count 1039 cells/uL (490-1740); Absolute CD8 Count 871 cells/uL (180-1170); Absolute Lymphocytes 2475 cells/uL (850-3900); CD4 CD8 Ratio 1.19 (0.86-5.00); Percent CD3 Cells 76 % (57-85); Percent CD4 Cells 42 % (30-61); Percent CD8 Cells 35 % (12-42)
[2023-10-14 14:28] LABS: HIV RNA PCR Qn Copies <20 DETECTED copies/mL (NOT DETECTED); HIV RNA PCR Qn Log Copies <1.30 DETECTED (NOT DETECTED)
== END 2023-10-09 13:44 | disposition home or self-care (01) ==
LOC: HO.LAB 13:43
PROVIDERS: PCP Internal Medicine; Visit Provider Internal Medicine
DX: B20 Human immunodeficiency virus [HIV] disease (principal)
CPT/HCPCS: 36415; 80048; 80076; 85025; 86359; 86360; 86780; 87536

== ENCOUNTER 2023-11-05 14:06 | Outpatient (AMB) | payer BC, SELFPAY ==
[2023-11-05 14:28] VITALS: PULSE 72; O2SAT 99; BMI 26.6
--- NOTE | 2023-11-05 14:28 | A.OFFVIS_ITS ---
Intake Vital Signs 11/05/23 14:28 Height 5 ft 9 in Weight 180 lb BMI 26.6 Pulse 72 Pulse Source Pulse Oximeter Pulse Oximetry (%) 99 Oxygen Delivery Method Room Air Intake Visit Reasons: 1 yr F/U Allergies Codeine Sulfate Allergy (Unknown, Uncoded 11/05/23 14:29) nauseated HPI 1 yr F/U HPI Details He is doing well. He has CD4 count of 1039 and viral load undetectable 10/09. He is UTD with HCM with Dr Richardson. 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 Surgical History H/O foot surgery Hx of colonoscopy Family History Brother Myocardial infarct Alcohol abuse Maternal Grandmother Colon cancer Father Bladder cancer Social History Housing: House Alcohol intake: never Patient Tobacco Use Status: Former Tobacco user Tobacco use type: Cigarette Years Smoked: 1987 stopped e-Cigarette/Vaping Use: Never Used Second Hand Smoke Exposure: No service: No Current occupational status: employed Cognitive needs: No Hearing needs: No Vision needs: Yes Review of Systems Const All systems reviewed & are unremarkable except as noted in HPI and below Physical Exam Vital Signs: Last Vital Signs Pulse 72 11/05/23 14:28 Pulse Ox 99 11/05/23 14:28 Oxygen Delivery Method Room Air 11/05/23 14:28 BMI result Body Mass Index 26.6 Const General: cooperative Orientation/consciousness: patient oriented x3 HEENT Head: Yes normal to inspection Mouth: Normal oral and palatal mucosa present Eyes General: appearance normal, both eyes and all related structures Pupils: Equal, round and reactive pupils present Resp Effort & Inspection: normal respiratory effort Cardio Rate: regular rate Rhythm: regular rhythm GI Palpation (GI): Soft to palpation and nontender General: Yes no CVA tenderness Back/Spine/Pelvis Back: no CVA tenderness Skin General skin exam: no rashes or lesions noted Neuro General: patient oriented x3 Cranial nerves: Yes CN's II-XII intact bilaterally and Yes Equal, round and reactive pupils present Extrem General: Yes normal to inspection Psych Appearance: grossly normal Assessment & Plan Assessment & Plan (1) HIV (human immunodeficiency virus infection): Comment: He has been doing well with CD4 count high and viral load undetectable He has no signs of androgen deficiency or renal failure He has no complaints He continues to exercise. Code(s): B20 - Human immunodeficiency virus [HIV] disease Plan: Continue Genvoya. See in one year. Labs before (put in for CD4 count and viral load). PCP to address cholesterol and prostate concerns. Coding Level of Care Code Est Pt Level 4 (91967) Diagnoses HIV (human immunodeficiency virus infection) B20
== END 2023-11-05 15:03 | disposition home or self-care (01) ==
PROVIDERS: PCP Internal Medicine; Visit Provider Internal Medicine
DX: B20 Human immunodeficiency virus [HIV] disease (principal)
CPT/HCPCS: 99214

== ENCOUNTER → 2023-11-05 14:06 | Outpatient (BNVA) | payer BC, SELFPAY | PROVIDERS: Visit Provider Internal Medicine ==

== ENCOUNTER 2024-03-12 06:17 | Outpatient (REF) | payer BC, SELFPAY ==
[2024-03-12 06:31] LABS: MANUAL DIFF FLAG NO
[2024-03-12 08:01] LABS: Basophils Percent Auto 0.4 % (0-2); Eosinophils Absolute Auto 0.1 X10*3/uL (0.0-0.4); Eosinophils Percent Auto 1.9 % (0-4); Hematocrit 42.4 % (42.0-52.0); Hemoglobin 14.1 g/dl (14.0-18.0); Imm Gran Abs Auto 0.01 X10*3/uL (0.00-0.03); Imm Gran Pct Auto 0.2 % (0.0-0.4); Lymphocytes Absolute Auto 3.1 X10*3/uL (1.2-4.9); Lymphocytes Percent Auto 53.6 % (20-40); Mean Corpuscular HGB Conc 33.3 g/dl (31.0-36.0); Mean Corpuscular Hemoglobin 32.6 pg (27.0-33.0); Mean Corpuscular Volume 97.9 fL (80.0-98.0); Mean Platelet Volume 9.8 fL (9.4-12.4); Monocytes Absolute Auto 0.5 X10*3/uL (0.1-1.2); Monocytes Percent Auto 8.1 % (2-11); Neutrophils Absolute Auto 2.1 x10*3/uL (2.0-8.3); Neutrophils Percent Auto 35.8 % (45-73); Platelet Count 204 X10*3/uL (160-400); Red Blood Count 4.33 X10*6/uL (4.60-5.80); Red Cell Distribution Width 12.7 % (11.0-16.0); White Blood Count 5.7 X10*3/uL (4.8-10.8)
[2024-03-12 08:43] LABS: Alanine Aminotransferase 17 U/L (0-40); Albumin Level 4.2 g/dL (3.5-5.0); Alkaline Phosphatase 57 U/L (39-117); Anion Gap 11 (12-20); Aspartate Amino Transferase 25 U/L (5-37); Bilirubin Total 0.5 mg/dL (0.0-1.0); Blood Urea Nitrogen 27 mg/dL (9-16); Calcium 9.1 mg/dL (8.4-10.2); Carbon Dioxide 27 mmol/L (22-29); Chloride 104 mmol/L (96-108); Cholesterol 183 mg/dL (<200); Estimated Glomerular Filt Rate > 60; Glucose Random 92 mg/dL (60-115); HDL Cholesterol 70 mg/dL (>40); LDL Cholesterol Calculated 99 mg/dL (<100); Potassium 3.8 mmol/L (3.3-5.1); Sodium 138 mmol/L (135-145); Total Protein 7.3 g/dL (6.5-8.0); Triglycerides 70 mg/dL (<150)
[2024-03-12 08:59] LABS: ~HepC Num1 0.09 S/CO (0.00-0.79); ~Hepatitis C Antibody Nonreactive (Nonreactive)
[2024-03-12 09:01] LABS: Free T4 (Free Thyroxine) 0.84 ng/dL (0.71-1.85); Syphilis Screen Nonreactive (Nonreactive); Thyroid Stimulating Hormone 3.41 uIU/mL (0.32-4.0)
[2024-03-12 09:05] LABS: Folate 12.4 ng/mL (> or = 4.0); Prostate Specific Antigen Scr 4.74 ng/mL (<0.05-4.0); Vitamin B12 681 pg/mL (200-900)
[2024-03-13 14:28] LABS: HIV RNA PCR Qn Copies NOT DETECTED copies/mL (NOT DETECTED); HIV RNA PCR Qn Log Copies NOT DETECTED (NOT DETECTED)
[2024-03-15 08:57] LABS: Absolute CD3 Count 2413 cells/uL (840-3060); Absolute CD4 Count 1346 cells/uL (490-1740); Absolute CD8 Count 1151 cells/uL (180-1170); Absolute Lymphocytes 3152 cells/uL (850-3900); CD4 CD8 Ratio 1.17 (0.86-5.00); Percent CD3 Cells 77 % (57-85); Percent CD4 Cells 43 % (30-61); Percent CD8 Cells 37 % (12-42)
== END 2024-03-12 06:18 | disposition home or self-care (01) ==
LOC: HO.LAB 06:17
PROVIDERS: Absent Provider Internal Medicine; PCP Internal Medicine; Visit Provider Internal Medicine
DX: E78.00 Pure hypercholesterolemia, unspecified (principal); B20 Human immunodeficiency virus [HIV] disease; Z12.5 Encounter for screening for malignant neoplasm of prostate
CPT/HCPCS: 36415; 80053; 80061; 82607; 82746; 84153; 84439; 84443; 85025; 86359; 86360; 86780; 86803; 87536

== ENCOUNTER 2024-07-05 13:28 | Outpatient (AMB) | payer BC, SELFPAY ==
[2024-07-05 13:29] VITALS: BP 138/82; PULSE 64; O2SAT 97; BMI 25.7
--- NOTE | 2024-07-05 13:29 | MHC.PC.OV ---
Vital Signs 07/05/24 13:29 Height 5 ft 9 in Weight 174 lb BMI 25.7 BP 138/82 Blood Pressure Location Lt brachial Position Sitting Pulse 64 Pulse Source Pulse Oximeter Pulse Oximetry (%) 97 Oxygen Delivery Method Room Air Intake Visit Reasons: annual exam Intake Note: Patient is here today for a physical. Investment Banking Manager Required: No Allergies Codeine Sulfate Allergy (Unknown, Uncoded 07/05/24 13:40) nauseated Medication List - Last Reconciled 07/05/24 by Yanni Mckeon PA-C acetaminophen (Tylenol) 650 mg PO Q6H PRN ascorbic acid (vitamin C) 500 mg PO DAILY clotrimazole-betamethasone 1-0.05 % 1 appl topical BID oxjpdds-kmz-bcapl-tenof alafen [phone] mg (Genvoya) 1 tab PO DAILY 90 days hydrocortisone 2.5% (Proctosol HC) 1 appl MA BID-QID PRN multivitamin 1 cap PO DAILY Tobacco use date assessed: 07/05/24 Dental Screening Dental Screen Date: 07/05/24 HPI annual exam HPI Details 58-year-old male with past medical history of hypercholesterolemia, anemia, and HIV infection lastly my nurse practitioner May 2023 coming in for physical exam.?Colonoscopy completed 2019 tubular adenoma follow up in 5 years.?Patient follows with [facility] Infectious Disease last seen October 2023 viral load undetectable and CD4 count 1039. Patient has no acute concerns today. 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 Surgical History H/O foot surgery Hx of colonoscopy Family History Brother Myocardial infarct Alcohol abuse Maternal Grandmother Colon cancer Father Bladder cancer Social History Housing: House Alcohol intake: never Patient Tobacco Use Status: Former Tobacco user Tobacco use type: Cigarette Years Smoked: 1987 stopped e-Cigarette/Vaping Use: Never Used Second Hand Smoke Exposure: No service: No Current occupational status: employed Cognitive needs: No Hearing needs: No Vision needs: Yes Questionnaire PHQ-9 Over the last 2 weeks, how often have you been bothered by any of the following problems? 1. Little interest or pleasure in doing things: not at all 2. Feeling down, depressed, or hopeless: not at all 3. Trouble falling or staying asleep, or sleeping too much: not at all 4. Feeling tired or having little energy: not at all 5. Poor appetite or overeating: not at all 6. Feeling bad about yourself - or that you are a failure or have let yourself or your family down: not at all 7. Trouble concentrating on things, such as reading the newspaper or watching television: not at all 8. Moving or speaking so slowly that other people could have noticed. Or the opposite - being so fidgety or restless that you have been moving around a lot more than usual: not at all 9. Thoughts that you would be better off or of hurting yourself in some way: not at all Total score: 0 Depression Screening Interpretation: Negative Depression Screening Done: Yes 83122 - PHQ-9 Billing: Yes Source: Developed by Drs. Tyler Blackmon, Fe Delgado, Vincent De Anda and colleagues, with an educational heri from [employer]. Thrive Questionnaire Date Thrive assessed: 07/05/24 I am a: Patient What is your living situation today?: I have a steady place to live Within the past 12 months, did the food you bought not last and you didn't have the money to get more?: Never true Within the past 12 months, did you worry whether your food would run out before you got money to buy more?: Never true Do you have trouble paying for medicines?: No Do you have trouble getting transportation to medical appointments?: No Do you have trouble paying your heating and electricity bill?: No Do you have trouble taking care of your child, family member or friend?: No Do you have trouble with day-to-day activities such as bathing, preparing meals, shopping, managing finances, etc.?: No Are you currently unemployed and looking for a job?: No Are you interested in more education?: No Please select the resources that you would like help with: None Currently or been in a relationship where the following occur: No concerns reported THRIVE Score: 0 AUDIT C Alcohol Use Questionnaire (AUDIT-C) 1. How often do you have a drink containing alcohol?: Never 3. How often do you have six or more drinks on one occasion?: Never Total Score: 0 SHANNAN-7 AMB Questionnaire HSANNAN-7 Date SHANNAN - 7 assessed: 07/05/24 Feeling nervous, anxious, or on edge: 0 = Not at all Not being able to stop or control worryin = Not at all Worrying too much about different things: 0 = Not at all Trouble relaxin = Not at all Being so restless that it is hard to sit still: 0 = Not at all Becoming easily annoyed or irritable: 0 = Not at all Feeling afraid as if something awful might happen: 0 = Not at all Total SHANNAN-7 score (0-4 normal; 5-9 mild; 10-14 moderate; 15-21 severe): 0 Source: Developed by Drs. Tyler Blackmon, Fe Delgado, Vincent De Anda and colleagues, with an educational heri from [employer]. SHANNAN-7 Assessment Billing SHANNAN-7 Assessment Tool: SHANNAN-7 Assessment 39512 Review of Systems Const Denies body aches, Denies fatigue, Denies fever(s), Denies frequent falls, Denies headache(s) and Denies weakness Eyes Reports no additional complaints and Denies change in vision ENT Details: decreased hearing in right ear Denies dysphagia, Denies dizziness, Denies facial pain, Denies headache(s), Denies nasal congestion and Denies odynophagia Card Denies chest pain, Denies syncope, Denies irregular heart rhythm, Denies leg edema, Denies lightheadedness and Denies dyspnea Resp Denies cough and Denies dyspnea GI Denies constipation, Denies dysphagia, Denies dyspepsia, Denies diarrhea, Denies nausea, Denies odynophagia and Denies vomiting Denies dysuria, Denies urinary frequency, Denies urinary hesitancy and Denies urinary urgency Musc Denies back pain and Denies myalgias Skin/Breast Reports system reviewed and no additional complaints, except as documented Neuro Denies dizziness, Denies syncope, Denies frequent falls, Denies headache(s) and Denies weakness Psych Reports no additional complaints Endo Denies fatigue Physical exam (Primary Care) Vital Signs: Oxygen Delivery Method Room Air 07/05/24 13:29 Tobacco/Smoking Status: Tobacco use Status Tobacco use date assessed 07/05/24 07/05/24 13:30 Patient Tobacco Use Status Former Tobacco user 07/05/24 13:30 Tobacco use type Cigarette 07/05/24 13:30 e-Cigarette/Vaping Use Never Used 07/05/24 13:30 PHQ-9: PHQ-9 Score PHQ-9: Total score 0 07/05/24 13:30 Depression Screening Interpretation: Negative Thrive Assessment: Date of Thrive Assessment Date Thrive assessed 07/05/24 07/05/24 13:30 Currently or been in a relationship where the following occur: No concerns reported Const General: cooperative, healthy appearing, comfortable and no acute distress Orientation/consciousness: patient oriented x3 HENMT Head: Yes normocephalic Ears: hearing grossly normal bilaterally, external ears normal, TM's normal bilaterally and EAC's normal General nose exam: Normal external nose present Face and sinus: Yes normal facial exam and Yes sinuses nontender Mouth: Normal oral and palatal mucosa present and tongue normal Throat: Yes posterior oropharynx normal Eyes General: appearance normal, both eyes and all related structures Conjunctivae: conjunctivae normal Pupils: Equal, round and reactive pupils present EOM: EOMs intact bilaterally and No Nystagmus present Neck Neck: Yes normal visual inspection, Yes full ROM and Yes no lymphadenopathy Chest Chest palpation & inspection: normal inspection of the chest Resp Effort & Inspection: normal respiratory effort Auscultation: clear to auscultation bilaterally, no crackles, no rales, no rhonchi, no wheezes and breath sounds present Cardio Rate: regular rate Rhythm: regular rhythm Peripheral pulses: radial pulses present and dorsalis pedis present GI Inspection: Yes normal to inspection and No Abdominal wall edema Palpation (GI): Soft to palpation, not firm and nontender Auscultation: normal bowel sounds Rectal Exam - Male: Yes deferred General: Yes no CVA tenderness Back/Spine/Pelvis Back: no CVA tenderness Skin General skin exam: no rashes or lesions noted Neuro General: patient oriented x3 Cranial nerves: Yes Equal, round and reactive pupils present, Yes Midline tongue present, Yes Ability to bilaterally elevate shoulders present and No Nystagmus present Gait exam (Neuro): Normal gait present Extrem General: Yes normal to inspection, Yes full ROM, No no pedal edema and No edema Psych Speech and movement: Normal speech and movement present Affect: normal affect Insight: Good insight present (Psych) Judgement: Good judgement present (Psych) Coding Level of Care Code Est Pt Prev Care 40-64y(31258) Diagnoses BPH (benign prostatic hyperplasia) N40.0 Mild anemia D64.9 Annual physical exam Z00.00 HIV (human immunodeficiency virus infection) B20 Hypercholesterolemia E78.00 Additional Codes SHANNAN-7 Assessment Billing - SHANNAN-7 Assessment Tool: SHANNAN-7 Assessment 39049 ([id number]) Assessment & Plan Assessment & Plan (1) BPH (benign prostatic hyperplasia): Code(s): N40.0 - Benign prostatic hyperplasia without lower urinary tract symptoms Category: Medical Plan: Prostate number stable and denies any symptoms at this time. (2) Mild anemia: Code(s): D64.9 - Anemia, unspecified Category: Medical Plan: Last blood work stable and denies any symptoms. (3) Annual physical exam: Code(s): Z00.00 - Encounter for general adult medical examination without abnormal findings Category: Medical Plan: Patient is up-to-date on all recommended routine screenings and vaccinations for his age. Blood work is updated follow up in 1 year or sooner if new problems arise. (4) HIV (human immunodeficiency virus infection): Comment: He has been doing well with CD4 count high and viral load undetectable He has no signs of androgen deficiency or renal failure He has no complaints He continues to exercise. Code(s): B20 - Human immunodeficiency virus [HIV] disease Category: Medical Plan: Continue to follow with Infectious Disease (5) Hypercholesterolemia: Code(s): E78.00 - Pure hypercholesterolemia, unspecified Category: Medical Plan: Last cholesterol labs done in February 2024 within goal for this patient. Avoid foods that are high in cholesterol such as red meat, fried foods, eggs and baked goods. Triglyceride goal of less than 150 and LDL goal of less than 100. Not currently on medical management. Plan This note was constructed using voice recognition software. While every effort has been made to ensure accuracy and printed circuit boards laminator, still areas may have been included sometimes these areas may affect the content or meeting of the given symptoms. Total time spent caring for the patient today was 30 minutes. This includes time spent before the visit reviewing the chart, time spent during the visit, and time spent after the visit and documentation.
== END 2024-07-05 13:58 | disposition home or self-care (01) ==
PROVIDERS: PCP Internal Medicine
DX: N40.0 Benign prostatic hyperplasia without lower urinary tract symptoms (principal); D64.9 Anemia, unspecified; Z00.00 Encounter for general adult medical examination without abnormal findings; B20 Human immunodeficiency virus [HIV] disease; E78.00 Pure hypercholesterolemia, unspecified

== ENCOUNTER → 2024-07-05 13:28 | Outpatient (BNVA) | payer BC, SELFPAY | PROVIDERS: PCP Internal Medicine | DX: Z00.00 Encounter for general adult medical examination without abnormal findings (principal); N40.0 Benign prostatic hyperplasia without lower urinary tract symptoms; D64.9 Anemia, unspecified; B20 Human immunodeficiency virus [HIV] disease; E78.00 Pure hypercholesterolemia, unspecified | CPT/HCPCS: 96127 ==

== ENCOUNTER 2024-10-28 14:33 | Outpatient (REF) | payer BC, SELFPAY ==
[2024-10-28 14:57] LABS: MANUAL DIFF FLAG NO
[2024-10-28 15:33] LABS: Basophils Percent Auto 0.3 % (0-2); Eosinophils Absolute Auto 0.1 X10*3/uL (0.0-0.4); Eosinophils Percent Auto 1.4 % (0-4); Hemoglobin 14.4 g/dl (14.0-18.0); Imm Gran Abs Auto 0.01 X10*3/uL (0.00-0.03); Imm Gran Pct Auto 0.2 % (0.0-0.4); Lymphocytes Absolute Auto 2.6 X10*3/uL (1.2-4.9); Lymphocytes Percent Auto 41.1 % (20-40); Mean Corpuscular HGB Conc 33.5 g/dl (31.0-36.0); Mean Corpuscular Hemoglobin 32.9 pg (27.0-33.0); Mean Corpuscular Volume 98.2 fL (80.0-98.0); Mean Platelet Volume 9.5 fL (9.4-12.4); Monocytes Absolute Auto 0.5 X10*3/uL (0.1-1.2); Monocytes Percent Auto 7.2 % (2-11); Neutrophils Absolute Auto 3.1 x10*3/uL (2.0-8.3); Neutrophils Percent Auto 49.8 % (45-73); Platelet Count 204 X10*3/uL (160-400); Red Blood Count 4.38 X10*6/uL (4.60-5.80); Red Cell Distribution Width 12.6 % (11.0-16.0); White Blood Count 6.3 X10*3/uL (4.8-10.8)
[2024-10-28 16:06] LABS: Alanine Aminotransferase 25 U/L (0-40); Albumin Level 4.2 g/dL (3.5-5.0); Anion Gap 11 (12-20); Aspartate Amino Transferase 36 U/L (5-37); Bilirubin Direct 0.1 mg/dL (0.0-0.5); Bilirubin Total 0.4 mg/dL (0.0-1.0); Blood Urea Nitrogen 30 mg/dL (9-16); Calcium 9.3 mg/dL (8.4-10.2); Carbon Dioxide 28 mmol/L (22-29); Chloride 106 mmol/L (96-108); Estimated Glomerular Filt Rate > 60; Glucose Random 73 mg/dL (60-115); Potassium 3.9 mmol/L (3.3-5.1); Sodium 141 mmol/L (135-145); Total Protein 7.8 g/dL (6.5-8.0)
[2024-10-28 16:24] LABS: Alkaline Phosphatase 60 U/L (39-117)
--- OUTSIDE RECORDS SUMMARY | 2024-10-28 18:30 | XMS_ITS | Encounter Summary ---
Author Organization [employer] Address [address] [place] [address] Care Team Providers Care Crop Or Livestock Tenant Farmer Name Role Phone Unavailable Primary Care Provider Unavailabl e Encounter Details Date Type Department Care Team (Latest Contact Info) Description 07/30/2021 Abstract [facility]HC CONVERSIONS Dental, Provider, DDS Social History Tobacco Use Types Packs/Day Years Used Date Smoking Tobacco: Never Assessed Sex and Gender Information Value Date Recorded Sex Assigned at Male 07/29/2022 10:23 AM EDT Legal Sex Male 10:23 AM EDT Gender Identity Male 07/29/2022 10:23 AM EDT Sexual Orientation Choose not to disclose 2021 10:23 AM EDT documented as of this encounter Plan of Treatment Not on file documented as of this encounter Visit Diagnoses Not on filedocumented in this encounter
--- OUTSIDE RECORDS SUMMARY | 2024-10-28 18:30 | XMS_ITS | Clinical Summary ---
Author Organization [facility] Address [address] [place] [address] Care Team Providers Care Supervisor Reinforced Steel Placing Name Role Phone Unavailable Primary Care Provider Unavailabl e Source Comments PLEASE NOTE, if this patient is a minor, it may be UNLAWFUL to discuss sensitive information that is contained in these records (such as FAMILY PLANNING, MENTAL HEALTH or SUBSTANCE ABUSE) with the minor patient's parent or other person without the patient's specific authorization.[facility] Immunizations Name Administration Dates Next Due Moderna COVID-19 Vaccine, re d cap blue label, 12+ Primary Series 02/06/2021,01/09/2021 Social History Tobacco Use Types Packs/Day Years Used Date Smoking Tobacco: Never Assessed Social Connections Answer Date Recorded Social Connections and Isolation 0 01/09/2021 Financial Resource Strain Answer Date R ecorded Financial Resource Strain 0 2020 Stress Answer Date Recorded Stress 0 01/09/2021 Physical Activity Answer Date Recorded Physical Activity 0 01/09/2021 Food Insecurity Answer Date Recorded Food 0 01/09/2021 Transportation Needs Answer Date Record ed Transportation 0 01/09/2021 Housing Stability Answer Date Recorded Housing 0 01/09/2021 Safety and Environment Answer Date Eshan rded Safety 0 01/09/2021 Utilities Answer Date Recorded Utilities 0 01/09/2021 Employment Answer Date Recorded Employment 0 01/09/2021 Sex and Gender Information Value Date Recorded Sex Assigned at Not on file Legal Sex Male 11:23 AM PDT Gender Identity Not on file Sexual Orientation Not on file Plan of Treatment Health Maintenance Due Date Last Done Comments Diabetes Screening 1963 Hepatitis C Screening 1963 Lipid Screening 1963 Tobacco Screening 1963 HIV Screening 1978 Annual Preventive Care Visit 1981 Hypertension Screening (#1) 1981 Imm-DTaP/Tdap/Td (1 - Tdap) 1982 CT Colonography 2008 Colonoscopy 2008 Colorectal Cancer Screening 2008 FIT/gFOBT 2008 Fecal DNA 2008 Flexible Sigmoidoscopy 2008 Imm-Zoster, Recombinant (1 o f 2) 2013 Alcohol and Drug Screen 09/29/2023 Depression Annual Screen 09/29/2023 [id number] ( season) 2024 02/06/2021, 01/09/2021 Imm-Influenza (#1) 2024 Imm-Hepatitis B Aged Out No longer el igible based on patient's age to complete this topic Insurance BLUE CROSS/NAVJOT FAN Member Subscriber Plan / Payer (Ef fective 2013-Present) Name:Sundeep Saul Relation to Subscriber:Self Name:Sundeep Saul Payer ID:[id number] Type:Indemnity Address: [facility] [address] [place] [address]
--- OUTSIDE RECORDS SUMMARY | 2024-10-28 18:31 | XMS_ITS | Clinical Summary ---
Author Organization [employer] Address [address] [place] [address] Care Team Providers Care Tumbling Barrel Painter Name Role Phone Unavailable Primary Care Provider Unavailabl e Allergies Active Allergy Reactions Criticality Noted Date Comments Sulfa Antibiotics Unknown 06/15/2020 Medications elvitegravir-cob icistat-emtricit abine-tenofovir alafenamide (Genvoya) [phone] MG tablet Take 1 tablet by mouth at bed time. Active Ascorbic Acid (vitamin C) 100 MG tablet Take 100 mg by mouth in the morning. Active Multiple Vitamins-Mineral s (multivitamin with minerals) tablet Take 1 tablet by mouth in the morning. Active Active Problems Problem Noted Date Diagnosed Date Dental plaque 01/10/2023 Social History Tobacco Use Types Packs/Day Years Used Date Smoking Tobacco: Former Cigarettes Smokeless Tobacco: Never Tobacco Cessation:Counseling Given: Not Answered Sex and Gender Information Value Date Recorded Sex Assigned at Male 07/29/2022 10:23 AM EDT Legal Sex Male 10:23 AM EDT Gender Identity Male 07/29/2022 10:23 AM EDT Sexual Orientation Choose not to disclose 2021 10:23 AM EDT Last Filed Vital Signs Vital Sign Reading Time Taken Comments Blood Pressure 124/78 01/10/2023 10:38 AM EDT Pulse 74 01/10/2023 10:38 AM EDT Temperature - - Respiratory Rate - - Oxygen Saturation - - Inhaled Oxygen Concentration - - Weight - - Height - - Body Mass Index - - Plan of Treatment Health Maintenance Due Date Last Done Comments CT Colonography 1963 Colonoscopy 1963 Colorectal Cancer Screening 1963 Dental Oral Exam 1963 Dental X-Ray: Bitewings 1963 Dental X-Ray: Full Mouth 1963 Depression Screening 1963 FIT DNA/Cologuard 1963 FIT 1963 FOBT 1963 HIV Screening 1963 Lipid Panel 1963 SDOH Screening 1963 Sigmoidoscopy 1963 Alcohol/Substance Use Screening 1975 Hepatitis C Screening 1981 Pneumococcal Vaccine: 50+ Years (3 of 3 - PCV20 or PCV21) 04/10/2021 04/10/2016, 03/21/2015 Dental Prophylaxis 07/13/2023 01/10/2023 Tobacco Screening 01/11/2024 01/10/2023 COVID-19 Vaccine ( season) 2024 06/27/2022, 01/16/2022, 08/18/2021, Additional history exists Influenza Vaccine (#1) 2024 , 06/22/2021, 07/01/2020, Additional history exists DTaP/Tdap/Td Vaccines (3 - Td or Tdap) 04/18/2031 04/18/2021, 01/19/2012 RSV Patients and Patients Aged 60 years or older (1 - 1-dose 75+ series) 2038 Hepatitis A Vaccines Aged Out 03/28/2003, 01/30/20 03 No longer eligible based on patient's age to complete this topic Hepatitis B Vaccines Completed 01/29/2005, 09/19/2003, 03/28/2003, Additional history exists Zoster Vaccines Completed 01/26/2019, 10/27/2018 Meningococcal Vaccine Aged Out 06/14/2022, 022 No longer eligible based on patient's age to complete this topic HIB Vaccines Aged Out No longer eligi ble based on patient's age to complete this topic HPV Vaccines Aged Out No longer eligi ble based on patient's age to complete this topic IPV Vaccines Aged Out No longer eligi ble based on patient's age to complete this topic RSV under 20 months Aged Out No longe r eligible based on patient's age to complete this topic Rotavirus Vaccines Aged Out No longer eligible based on patient's age to complete this topic Procedures Procedure Name Priority Date/Time Associated Diagnosis Comments PROPHYLAXIS - ADULT Routine 01/10/2023 10:00 AM EDT from Last 3 Months or Most Recently Relevant to Health Maintenance
--- OUTSIDE RECORDS SUMMARY | 2024-10-28 18:31 | XMS_ITS | Patient Health Record ---
Author Organization [facility] Address [address] [place] [address] Care Team Providers Care Picker And Sorter Load And Unload Name Role Phone Po Thad PONCE Primary Care Provider Jesse Woo Jr Unavailable [phone] ALLERGIES Allergen (clinical drug ingredient) Drug/Non Drug Allergy documented on EMR Reaction Allergy Type Onset Date Status Substance with sulfonamide structure and antibacterial mechanism of action (substance) Sulfa (uncoded) Unknown Allergy Active REASON FOR REFERRAL No Information MEDICATIONS Medication SIG (Take, Route, Frequency, Duration) Notes Start Date End Date Status Aspirin Active Ibuprofen Active MiraLax (colon prep) 8.3 ounce ((238) grams mixed with Gatorade or Crystal Light orally begin at 5:00 p.m. the day before the procedure for 1 day 06/15/2020 Active Valinex Orally PRN Active Multivitamin Active Genvoya Active Tylenol Active Vitamin C Active IMMUNIZATIONS Vaccine Route Administration Date Status Comme nts Influenza Unknown 06/29/2019 Administered SOCIAL HISTORY Sex Assigned At : Social History Observation Description Sex Assigned At Unknown PROBLEMS Problem Type ICD Code Onset Dates Problem Status W/U Status Risk SNOMED Code Notes Problem Encounter for other preprocedural examination (Z01.818) Active confirmed 075634305 Problem Screening for colon cancer (Z12.11) Active confirmed [id number] PLAN OF TREATMENT Future Test Test Name Order Date COLONOSCOPY 01/25/2015 COLONOSCOPY 06/15/2020 Insurance Providers Payer Name Payer Address Payer Phone Subscriber Number Group Number Insured Name Patient Relationship to Insured Coverage Start Date Coverage End Date [facility] [address] [place], [place] [id number] [phone] [id number] Self - patient is the insured MEDICAL (GENERAL) HISTORY Medical History History ICD Code HIV infection Surgical History Surgery Date(Month/Year) HPV Lesions
[2024-10-30 15:13] LABS: HIV RNA PCR Qn Copies NOT DETECTED copies/mL (NOT DETECTED); HIV RNA PCR Qn Log Copies NOT DETECTED (NOT DETECTED)
[2024-11-02 16:03] LABS: Absolute CD3 Count 2008 cells/uL (840-3060); Absolute CD4 Count 1088 cells/uL (490-1740); Absolute CD8 Count 978 cells/uL (180-1170); Absolute Lymphocytes 2526 cells/uL (850-3900); CD4 CD8 Ratio 1.11 (0.86-5.00); Percent CD3 Cells 79 % (57-85); Percent CD4 Cells 43 % (30-61); Percent CD8 Cells 39 % (12-42)
== END 2024-10-28 14:34 | disposition home or self-care (01) ==
LOC: HO.LAB 14:33
PROVIDERS: PCP Internal Medicine; Visit Provider Internal Medicine
DX: B20 Human immunodeficiency virus [HIV] disease (principal)
CPT/HCPCS: 36415; 80048; 80076; 85025; 86359; 86360; 87536

== ENCOUNTER 2024-11-10 14:05 | Outpatient (AMB) | payer BC, SELFPAY ==
[2024-11-10 14:10] VITALS: PULSE 63; O2SAT 99; BMI 27.0
--- NOTE | 2024-11-10 14:10 | MHC.OFFVIS ---
Vital Signs 11/10/24 14:10 Height 5 ft 9 in Weight 183 lb BMI 27.0 Pulse 63 Pulse Source Pulse Oximeter Pulse Oximetry (%) 99 Oxygen Delivery Method Room Air Intake Visit Reasons: 1 yr f/u.lab Allergies Codeine Sulfate Allergy (Unknown, Uncoded 07/05/24 13:40) nauseated HPI HPI 1 yr f/u.lab: Details: He has been doing well. His CD4 count is 1088 and viral load undetectable on 10/28. He is UTD on healthcare screening strategies. 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 Surgical History H/O foot surgery Hx of colonoscopy Family History Brother Myocardial infarct Alcohol abuse Maternal Grandmother Colon cancer Father Bladder cancer Social History Housing: House Alcohol intake: never Patient Tobacco Use Status: Former Tobacco user Tobacco use type: Cigarette Years Smoked: 1987 stopped e-Cigarette/Vaping Use: Never Used Second Hand Smoke Exposure: No service: No Current occupational status: employed Cognitive needs: No Hearing needs: No Vision needs: Yes Review of Systems Const All systems reviewed & are unremarkable except as noted in HPI and below Physical Exam Vital Signs: Last Vital Signs Pulse 63 11/10/24 14:10 Pulse Ox 99 11/10/24 14:10 Oxygen Delivery Method Room Air 11/10/24 14:10 BMI result Body Mass Index 27.0 Const General: cooperative Orientation/consciousness: patient oriented x3 HEENT Head: Yes normal to inspection Mouth: Normal oral and palatal mucosa present Eyes General: appearance normal, both eyes and all related structures Pupils: Equal, round and reactive pupils present Resp Effort & Inspection: normal respiratory effort Cardio Rate: regular rate Rhythm: regular rhythm GI Palpation (GI): Soft to palpation and nontender General: Yes no CVA tenderness Back/Spine/Pelvis Back: no CVA tenderness Skin General skin exam: no rashes or lesions noted Neuro General: patient oriented x3 Cranial nerves: Yes CN's II-XII intact bilaterally and Yes Equal, round and reactive pupils present Extrem General: Yes normal to inspection Psych Appearance: grossly normal Assessment & Plan Assessment & Plan (1) HIV (human immunodeficiency virus infection): Comment: He has been doing well with CD4 count high and viral load undetectable He has no signs of androgen deficiency or renal failure He has no complaints He continues to exercise. Code(s): B20 - Human immunodeficiency virus [HIV] disease Category: Medical Plan: Continue Genvoya (wrote for a year) He will get labs then and continue Genvoya. Medications: Refilled dfjxugn-esh-lprlw-tenof alafen [phone] mg (Genvoya) 1 tab PO DAILY 90 tabs 3RF 90 days Coding Level of Care Code Est Pt Level 4 (73275) Diagnoses HIV (human immunodeficiency virus infection) B20
--- OUTSIDE RECORDS SUMMARY | 2024-11-10 15:30 | XMS_ITS | Clinical Summary ---
Author Organization [employer] Address [address] [place] [address] Care Team Providers Care Finished Goods Stock Clerk Name Role Phone Unavailable Primary Care Provider Unavailabl e Allergies Active Allergy Reactions Criticality Noted Date Comments Sulfa Antibiotics Unknown 06/15/2020 Medications elvitegravir-cob icistat-emtricit abine-tenofovir alafenamide (Genvoya) [phone] MG tablet Take 1 tablet by mouth [...]
--- OUTSIDE RECORDS SUMMARY | 2024-11-10 15:30 | XMS_ITS | Clinical Summary ---
Author Organization [facility] Address [address] [place] [address] Care Team Providers Care Pool Table Operator Name Role Phone Unavailable Primary Care Provider [...] 0 01/09/2021 Safety and Environment Answer Date Ehsan rded Safety 0 01/09/2021 Utilities Answer Date [...] Drug Screen 09/29/2023 Depression Annual Screen 09/29/2023 [id number] ( season) 2024 02/06/2021, 01/09/2021 Imm-Influenza (#1) 2024 Imm-Hepatitis B Aged Out No longer el igible based on patient's age to complete this topic Insurance BLUE CROSS/NAVJOT FAN Member Subscriber Plan / Payer (Ef fective 2013-Present) Name:Sundeep Saul Relation to Subscriber:Self Name:Sundeep Saul Payer ID:[id number] Type:Indemnity Address: [facility] [id number] [place] [address]
--- OUTSIDE RECORDS SUMMARY | 2024-11-10 15:30 | XMS_ITS | Patient Health Record ---
Author Organization [facility] Address [address] [place] [address] Care Team Providers Care Semiconductor Bonder Name Role Phone Po Thad PONCE Primary Care Provider Jesse Woo Jr Unavailable [phone] ALLERGIES Allergen (clinical drug ingredient) Drug/Non [...] for other preprocedural examination (Z01.818) Active confirmed [id number] Problem Screening for colon cancer (Z12.11) Active confirmed [id number] PLAN OF TREATMENT Future Test Test Name Order Date COLONOSCOPY 01/25/2015 COLONOSCOPY 06/15/2020 Insurance Providers Payer Name Payer Address Payer Phone Subscriber Number Group Number Insured Name Patient Relationship to Insured Coverage Start Date Coverage End Date [facility] [address] [place], [place] [id number] [id number] [id number] Self - patient is the insured MEDICAL (GENERAL) HISTORY Medical History History ICD Code HIV infection Surgical History Surgery Date(Month/Year) HPV Lesions
--- OUTSIDE RECORDS SUMMARY | 2024-11-10 15:30 | XMS_ITS | Encounter Summary ---
Author Organization [employer] Address [address] [place] [address] Care Team Providers Care Size Roller Operator Name Role Phone Unavailable Primary Care [...]
== END 2024-11-10 14:52 | disposition home or self-care (01) ==
PROVIDERS: PCP Internal Medicine; Visit Provider Internal Medicine
DX: B20 Human immunodeficiency virus [HIV] disease (principal)
CPT/HCPCS: 99214

== ENCOUNTER 2025-03-15 14:04 | Outpatient (REF) | payer BC, SELFPAY ==
--- OUTSIDE RECORDS SUMMARY | 2025-03-15 16:12 | XMS_ITS | Clinical Summary ---
Author Organization [facility] Address [address] [place] [address] Care Team Providers Care Oracle Bpm Developer Name Role Phone Unavailable Primary Care Provider Unavailabl e Source Comments PLEASE NOTE, if this patient is a minor, it may be UNLAWFUL to discuss sensitive information that is contained in these records (such as FAMILY PLANNING, MENTAL HEALTH or SUBSTANCE ABUSE) with the minor patient's parent or other person without the patient's specific authorization.[facility] Immunizations Immunization Administration Dates Next Due Moderna COVID-19 Vaccine, [...] Health Maintenance Due Date Last Done Comments Anxiety Screening 1963 Diabetes Screening 1963 Hepatitis C Screening 1963 Lipid Screening 1963 Tobacco Screening 1963 HIV Screening 1978 Hypertension Screening (#1) 1981 Imm-DTaP/Tdap/Td (1 - Tdap) 1982 CT Colonography 2008 Colonoscopy 2008 Colorectal Cancer Screening 2008 FIT/gFOBT 2008 Fecal DNA 2008 Flexible Sigmoidoscopy 2008 Imm-Zoster, Recombinant (1 of 2) 2013 Gee-[id number]-62 ( season) 2024 021, 01/09/2021 Imm-Influenza (#1) 2024 Alcohol and Drug Screen 09/29/2024 Depression Annual Screen 09/29/2024 Insurance [place] [facility]
== END 2025-03-15 14:05 | disposition home or self-care (01) ==
LOC: HO.SH 14:04
PROVIDERS: Visit Provider Internal Medicine
DX: Z01.118 Encounter for examination of ears and hearing with other abnormal findings (principal); H90.3 Sensorineural hearing loss, bilateral; H93.11 Tinnitus, right ear
CPT/HCPCS: 92557; 92567

== ENCOUNTER 2025-04-27 14:33 | Outpatient (REF) | payer BC, SELFPAY ==
--- OUTSIDE RECORDS SUMMARY | 2025-04-27 15:15 | XMS_ITS | Patient Health Record ---
Author Organization [facility] Address [address] [place] [address] Care Team Providers Care Panama Hat Hydraulic Press Operator Name Role Phone Thad Richardson MD Primary Care Provider Jesse Woo Jr Unavailable [phone] Allergies Allergen (clinical drug ingredient) Drug/Non Drug Allergy documented on EMR Reaction Allergy Type Onset Date Status Substance with sulfonamide structure and antibacterial mechanism of action (substance) Sulfa (uncoded) Unknown Allergy Active Reason For Referral No Information Medications Medication SIG (Take, Route, Frequency, Duration) Notes Start Date End Date Status Aspirin Active Ibuprofen Active MiraLax (colon prep) 8.3 ounce ((238) grams mixed with Gatorade or Crystal Light orally begin at 5:00 p.m. the day before the procedure for 1 day 06/15/2020 Active Valinex Orally PRN Active Multivitamin Active Genvoya Active Tylenol Active Vitamin C Active Immunizations Vaccine Route Administration Date Status Comme nts Influenza Unknown 06/29/2019 Administered Problems Problem Type SNOMED Code ICD Code Onset Dates Problem Status W/U Status Risk Notes Problem [id number] Encounter for other preprocedural examination (Z01.818) Active confirmed Problem 114123732 Screening for colon cancer (Z12.11) Active confirmed Plan Of Treatment Future Test Test Name Order Date COLONOSCOPY 01/25/2015 COLONOSCOPY 06/15/2020 Insurance Providers Payer Name Payer Address Payer Phone Subscriber Number Group Number Insured Name Patient Relationship to Insured Coverage Start Date Coverage End Date [facility] [address] [place], [place] [id number] ALEXA KIM Self - patient is the insured Medical (General) History Medical History History ICD Code HIV infection Surgical History Surgery Date(Month/Year) HPV Lesions
--- OUTSIDE RECORDS SUMMARY | 2025-04-27 15:15 | XMS_ITS | Clinical Summary ---
Author Organization [facility] Address [address] [place] [address] Care Team Providers Care Education Research Analyst Name Role Phone Unavailable Primary Care Provider [...] 2008 Fecal DNA 2008 Flexible Sigmoidoscopy 2008 Imm-Pneumococcal 50+ (1 of 1 - PCV) 2013 Imm-Zoster, Recombinant (1 of 2) 2013 Mem-TSZYW-75 (3 - season) 2024 021, 01/09/2021 Alcohol and Drug Screen 09/29/2024 Depression Annual Screen 09/29/2024 Imm-Influenza (#1) 2025 Insurance [employer] CROSS/[facility]
--- OUTSIDE RECORDS SUMMARY | 2025-04-27 15:15 | XMS_ITS | Encounter Summary ---
Author Organization [employer] Address [address] [place] [address] Care Team Providers Care Bakelite Molder Name Role Phone Unavailable Primary Care Provider [...]
[2025-04-29 15:53] LABS: HIV RNA PCR Qn Copies NOT DETECTED copies/mL (NOT DETECTED); HIV RNA PCR Qn Log Copies NOT DETECTED (NOT DETECTED)
[2025-05-02 10:58] LABS: Absolute CD3 Count 1707 cells/uL (840-3060); Absolute CD8 Count 843 cells/uL (180-1170); Percent CD3 Cells 80 % (57-85); Percent CD8 Cells 39 % (12-42)
== END 2025-04-27 14:34 | disposition home or self-care (01) ==
LOC: HO.LAB 14:33
PROVIDERS: PCP Internal Medicine; Visit Provider Internal Medicine
DX: B20 Human immunodeficiency virus [HIV] disease (principal)
CPT/HCPCS: 36415; 86359; 86360; 87536

== ENCOUNTER 2025-07-12 13:43 | Outpatient (AMB) | payer BC, SELFPAY ==
[2025-07-12 13:46] VITALS: BP 118/80; PULSE 63; TEMP 36.4; O2SAT 98; BMI 27.5
--- NOTE | 2025-07-12 13:46 | A.OFFPC_ITS ---
Vital Signs 07/12/25 13:46 Height 5 ft 9 in Weight 186 lb 6 oz BMI 27.5 BP 118/80 Blood Pressure Location Lt brachial Position Sitting Pulse 63 Pulse Source Pulse Oximeter Temp 97.5 F Temp Source Temporal Artery Scan Pulse Oximetry (%) 98 Oxygen Delivery Method Room Air Intake Visit Reasons: ANNUAL Allergies Codeine Sulfate Allergy (Unknown, Uncoded 07/12/25 13:48) nauseated Medication List - Last Reconciled 07/12/25 by Thad Richardson MD acetaminophen (Tylenol) 650 mg PO Q6H PRN ascorbic acid (vitamin C) 500 mg PO DAILY clotrimazole-betamethasone 1-0.05 % 1 appl topical BID llxnspt-wyk-qpxxn-tenof alafen [phone] mg (Genvoya) 1 tab PO DAILY 90 days hydrocortisone 2.5% (Proctosol HC) 1 appl DC BID-QID PRN ibuprofen (Advil) 600 mg PO Q8H multivitamin 1 cap PO DAILY Tobacco use date assessed: 07/12/25 Dental Screening Dental Screen Date: 07/12/25 Did you have a dental visit in the last 12 months?: No Did you have a dental problem in the last 6 months where you did not have access to dental care?: No Was dental information given to patient?: Patient has dentist HPI ANNUAL HPI Details R shoulder pain 1 month,, advil PFSH Medical History HIV (human immunodeficiency virus infection) Hypercholesterolemia Renal insufficiency 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 Surgical History H/O foot surgery Hx of colonoscopy Family History Brother Myocardial infarct Alcohol abuse Maternal Grandmother Colon cancer Father Bladder cancer Social History Housing: House Alcohol intake: never Patient Tobacco Use Status: Former Tobacco user Tobacco use type: Cigarette Years Smoked: 1987 stopped e-Cigarette/Vaping Use: Never Used Second Hand Smoke Exposure: No service: No Current occupational status: employed Cognitive needs: No Hearing needs: No Vision needs: Yes Questionnaire PHQ-9 Over the last 2 weeks, how often have you been bothered by any of the following problems? 1. Little interest or pleasure in doing things: not at all 2. Feeling down, depressed, or hopeless: not at all 3. Trouble falling or staying asleep, or sleeping too much: not at all 4. Feeling tired or having little energy: not at all 5. Poor appetite or overeating: not at all 6. Feeling bad about yourself - or that you are a failure or have let yourself or your family down: not at all 7. Trouble concentrating on things, such as reading the newspaper or watching television: not at all 8. Moving or speaking so slowly that other people could have noticed. Or the opposite - being so fidgety or restless that you have been moving around a lot more than usual: not at all 9. Thoughts that you would be better off or of hurting yourself in some way: not at all Total score: 0 Depression Screening Interpretation: Negative Depression Screening Done: Yes 66688 - PHQ-9 Billing: Yes Source: Developed by Drs. Tyler Blackmon, Fe Delgado, Vincent De Anda and colleagues, with an educational heri from [employer]. Thrive Questionnaire Date Thrive assessed: 07/10/25 I am a: Patient What is your living situation today?: I have a steady place to live Within the past 12 months, did the food you bought not last and you didn't have the money to get more?: Never true Within the past 12 months, did you worry whether your food would run out before you got money to buy more?: Never true Do you have trouble paying for medicines?: No Do you have trouble getting transportation to medical appointments?: No Do you have trouble paying your heating and electricity bill?: No Do you have trouble taking care of your child, family member or friend?: No Do you have trouble with day-to-day activities such as bathing, preparing meals, shopping, managing finances, etc.?: No Are you currently unemployed and looking for a job?: No Are you interested in more education?: No Please select the resources that you would like help with: None Currently or been in a relationship where the following occur: No concerns reported THRIVE Score: 0 AUDIT C Alcohol Use Questionnaire (AUDIT-C) 1. How often do you have a drink containing alcohol?: Never 3. How often do you have six or more drinks on one occasion?: Never Total Score: 0 SHANNAN-7 AMB Questionnaire SHANNAN-7 Date SHANNAN - 7 assessed: 07/12/25 Feeling nervous, anxious, or on edge: 0 = Not at all Not being able to stop or control worryin = Not at all Worrying too much about different things: 0 = Not at all Trouble relaxin = Not at all Being so restless that it is hard to sit still: 0 = Not at all Becoming easily annoyed or irritable: 0 = Not at all Feeling afraid as if something awful might happen: 0 = Not at all Total SHANNAN-7 score (0-4 normal; 5-9 mild; 10-14 moderate; 15-21 severe): 0 Source: Developed by Drs. Tyler Blackmon, Fe Delgado, Vincent De Anda and colleagues, with an educational heri from [employer]. SHANNAN-7 Assessment Billing SHANNAN-7 Assessment Tool: SHANNAN-7 Assessment 31464 Review of Systems Const Denies poor appetite and Denies weakness Eyes Denies no additional complaints ENT Reports Normal hearing present, Denies dizziness, Denies nasal congestion, Denies tinnitus and Denies sore throat Card Denies chest pain, Denies syncope, Denies rapid heart rate and Denies dyspnea Resp Denies cough and Denies dyspnea GI Denies change in stool character, Reports constipation, Denies diarrhea, Denies nausea and Denies vomiting Denies dysuria and Denies urinary frequency Neuro Reports Normal hearing present, Denies confusion, Denies dizziness, Denies syncope and Denies weakness Psych Denies confusion Physical exam (Primary Care) Vital Signs: Last Vital Signs Temp 97.5 F 07/12/25 13:46 Pulse 63 07/12/25 13:46 BP 118/80 07/12/25 13:46 Pulse Ox 98 07/12/25 13:46 Oxygen Delivery Method Room Air 07/12/25 13:46 BMI result Body Mass Index 27.5 Tobacco/Smoking Status: Tobacco use Status Tobacco use date assessed 07/12/25 07/12/25 13:51 Patient Tobacco Use Status Former Tobacco user 07/12/25 13:51 Tobacco use type Cigarette 07/12/25 13:51 e-Cigarette/Vaping Use Never Used 07/12/25 13:51 PHQ-9: PHQ-9 Score PHQ-9: Total score 0 07/12/25 13:58 Depression Screening Interpretation: Negative Thrive Assessment: Date of Thrive Assessment Date Thrive assessed 07/10/25 07/12/25 13:51 Currently or been in a relationship where the following occur: No concerns reported Const General: No confusion Orientation/consciousness: No confusion HENMT Head: Yes normocephalic Ears: external ears normal and TM's normal bilaterally Face and sinus: Yes normal facial exam Mouth: moist mucous membranes Throat: Yes tonsils normal Eyes Conjunctivae: conjunctivae normal Pupils: Equal, round and reactive pupils present and Pupil accommodation reflex normal Direct Ophthalmoscopy: normal light reflex Neck Neck: No lymphadenopathy Thyroid: Thyroid normal Chest Chest palpation & inspection: normal inspection of the chest Resp Effort & Inspection: normal respiratory effort and no audible wheezes Auscultation: clear to auscultation bilaterally, no crackles, no wheezes and lung sounds not diminished Cardio Rate: regular rate Rhythm: regular rhythm Peripheral pulses: radial pulses present and dorsalis pedis present GI Other: guaiac negative prostate N Palpation (GI): no masses Auscultation: normal bowel sounds and normoactive bowel sounds Male General Exam: Yes normal external exam Skin General skin exam: no rashes or lesions noted Rashes: no rashes Neuro General: No confusion Cranial nerves: Yes Equal, round and reactive pupils present and Yes Normal hearing present Cognition (Neuro): normal cognition Gait exam (Neuro): Normal gait present Motor exam (neuro): 5/5 motor strength present throughout Deep tendon reflexes (DTR's): Right brachioradialis reflex intensity grade: 2+, Left brachioradialis reflex intensity grade: 2+, Right patellar reflex intensity grade: 2+ and Left patellar reflex intensity grade: 2+ Extrem General: No edema Coding Level of Care Code Est Pt Prev Care 40-64y(98728) Diagnoses Annual physical exam Z00.00 HIV (human immunodeficiency virus infection) B20 BPH (benign prostatic hyperplasia) N40.0 PSA elevation R97.20 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 (2) HIV (human immunodeficiency virus infection): Comment: He has been doing well with CD4 count high and viral load undetectable He has no signs of androgen deficiency or renal failure He has no complaints He continues to exercise. Code(s): B20 - Human immunodeficiency virus [HIV] disease Category: Medical Plan: Continue to follow-up with infectious disease. On Genvoya (3) BPH (benign prostatic hyperplasia): Code(s): N40.0 - Benign prostatic hyperplasia without lower urinary tract symptoms Category: Medical Plan: Continue to monitor (4) PSA elevation: Code(s): R97.20 - Elevated prostate specific antigen [PSA] Category: Medical Plan: Advised repeat blood test (5) Asymmetric sensorineural deafness: Code(s): H90.3 - Sensorineural hearing loss, bilateral Category: Medical Plan: Discussed about ENT referrals (6) Hypercholesterolemia: Code(s): E78.00 - Pure hypercholesterolemia, unspecified Category: Medical Plan: Avoid fried foods, chicken skin, eggs, butter margarine, pastries and meat. Be it pork or beef they have a lot of cholesterol LDL goal of less than 130 and triglyceride of less than 150 patient diet controlled (7) Right shoulder pain: Code(s): M25.511 - Pain in right shoulder Category: Medical Plan History of Present Illness The patient is a 59-year-old male presenting for a routine physical examination and management of chronic conditions. The patient has a history of hypercholesterolemia, with the last cholesterol check in February showing an LDL of 99 mg/dL and triglycerides of 70 mg/dL. He is currently managing his cholesterol through diet control, with a goal of maintaining LDL below 130 mg/dL and triglycerides below 150 mg/dL. The patient has been living with HIV, with a recent follow-up indicating an undetectable viral load and no signs of allergen deficiency or renal failure. He continues to take Genvoya as part of his treatment regimen. The patient reports a history of benign prostatic hyperplasia with an elevated PSA level. A prostate examination revealed enlargement with a smooth texture, and he is advised to continue monitoring PSA levels. The patient experiences musculoskeletal pain in the shoulder region, which has persisted for over a month. The pain is described as a throbbing sensation, particularly noticeable during certain movements such as yoga or lifting. He has been using ibuprofen for pain relief, with a noted improvement when taking 600 mg doses. The patient maintains an active lifestyle, engaging in regular swimming, weightlifting, and yoga. He denies alcohol and tobacco use and reports a family history of heart attack in his brother and cancer in his grandmother and father. Health Maintenance - Colonoscopy last performed in June 2020, follow-up recommended - Vaccinations up to date, including flu shot received recently - Regular follow-up with infectious disease specialist scheduled for October 2024 Social History - Exercise: Engages in regular swimming, weightlifting, and yoga - Substance Use: Denies alcohol and tobacco use - Family History: Reports heart attack in brother, cancer in grandmother and father Review of Systems - General: Denies fever, chills, or weight loss - Cardiovascular: Denies chest pain, palpitations, or syncope - Respiratory: Denies dyspnea, cough, or wheezing - Gastrointestinal: Denies nausea, vomiting, diarrhea, or constipation - Genitourinary: Reports nocturia, denies dysuria or hematuria - Neurological: Denies dizziness, headaches, or numbness - Musculoskeletal: Reports shoulder pain, denies joint swelling or stiffness Physical Exam General: Cooperative, healthy appearing, comfortable, no acute distress and well developed Orientation: Patient oriented x3 Limitations: No limitations Head: Normal to inspection Ears: Hearing grossly normal bilaterally, but noted more ear wax in one ear Nose: Normal external nose present Face and sinus: Normal facial exam Eyes: Appearance normal, both eyes and all related structures Neck: Normal visual inspection and Yes full ROM Respiratory: Normal respiratory effort and able to speak in complete sentences. Clear to auscultation bilaterally Cardiovascular: Regular rate and rhythm. Normal S1 and S2 GI: Normal to inspection. Soft to palpation and nontender Skin: No rashes or lesions noted Neuro: Patient oriented x3 Extremities: Normal to inspection, but patient reports a pinched nerve sensation from scapula down the arm, with a knot felt in the supraspinatus muscle area. No pain on palpation, but discomfort noted during certain movements. No signs of nerve involvement, likely muscular. Results - Labs: LDL 99 mg/dL, Triglycerides 70 mg/dL, PSA mildly elevated - Labs: Normal blood count, normal electrolytes, renal function with creatinine 4.13 mg/dL - Labs: Normal blood sugar, normal liver function, normal thyroid function Plan Patient was informed and verbally consented to the use of an ambient scribe for clinic note documentation during this visit. 1. Hypercholesterolemia The patient is managing hypercholesterolemia through diet control, with a target LDL of less than 130 mg/dL and triglycerides less than 150 mg/dL. Regular monitoring of lipid levels is advised to ensure goals are met. 2. Human Immunodeficiency Virus (Hiv) The patient continues on Genvoya with an undetectable viral load and no signs of allergen deficiency or renal failure. Follow-up with an infectious disease specialist is scheduled for October 2024. 3. Benign Prostatic Hyperplasia (Bph) With Elevated Psa The patient has benign prostatic hyperplasia with an elevated PSA level. Prostate examination revealed enlargement with a smooth texture, and continued monitoring of PSA levels is recommended. 4. Musculoskeletal Pain In The Shoulder Region The patient experiences shoulder pain, particularly during yoga and lifting activities. Pain management includes ibuprofen, with consideration for physical therapy if symptoms persist. Discussion Notes During the visit, we discussed the management of hypercholesterolemia through diet control and the importance of regular lipid monitoring to achieve target levels. We also reviewed the patient's HIV management, emphasizing the continuation of Genvoya and the upcoming follow-up with the infectious disease specialist. For benign prostatic hyperplasia, we discussed the need for ongoing PSA monitoring and the findings of the prostate examination. Regarding shoulder pain, we explored pain management options, including ibuprofen and the potential for physical therapy if symptoms persist. Patient Instructions - Continue diet control to manage cholesterol levels. - Follow up with infectious disease specialist in October 2024. - Monitor PSA levels regularly and report any changes. - Use ibuprofen for shoulder pain as needed, and consider physical therapy if pain persists. Orders: Orders Free T4 (Free Thyroxine) 2 Months R97.20 - Elevated prostate specific antigen [PSA] Comprehensive Met. Panel 2 Months R97.20 - Elevated prostate specific antigen [PSA] Lipid Panel 2 Months E78.00 - Pure hypercholesterolemia, unspecified, R97.20 - Elevated prostate specific antigen [PSA] IRON PROFILE 2 Months R97.20 - Elevated prostate specific antigen [PSA] Thyroid Stimulating Hormone 2 Months R97.20 - Elevated prostate specific antigen [PSA] Vitamin B12 and Folate 2 Months R97.20 - Elevated prostate specific antigen [PSA] Vitamin D 25-OH Total 2 Months R97.20 - Elevated prostate specific antigen [PSA] PSA,Total (Free>4and<10) 2 Months R97.20 - Elevated prostate specific antigen [PSA] Complete Blood Count Auto Diff 2 Months R97.20 - Elevated prostate specific antigen [PSA] Hemoglobin A1c 2 Months R97.20 - Elevated prostate specific antigen [PSA] Ferritin 2 Months R97.20 - Elevated prostate specific antigen [PSA] Medications: New tramadol 50 mg PO DAILY PRN 7 tabs 0RF pain 7 days M25.511 - Pain in right shoulder
--- OUTSIDE RECORDS SUMMARY | 2025-07-12 16:38 | XMS_ITS | Clinical Summary ---
Author Organization [employer] Address [address] [place] [address] Care Team Providers Care Stretcher Operator Name Role Phone Unavailable Primary Care Provider Unavailabl e Allergies Active Allergy Reactions Criticality Noted Date Comments Sulfa Antibiotics Unknown 06/15/2020 Medications elvitegravir-cob icistat-emtricit abine-tenofovir alafenamide (Genvoya) [phone] MG tablet Take 1 tablet by mouth [...] Panel 1963 SDOH Screening 1963 Sigmoidoscopy 1963 Disability Screening 1963 Alcohol/Substance Use Screening 1975 Hepatitis C Screening 1981 Pneumococcal Vaccine: 50+ Years (3 of 3 - PCV20 or PCV21) 04/10/2021 04/10/2016, 03/21/2015 Dental Prophylaxis 07/13/2023 01/10/2023 Tobacco Screening 01/11/2024 01/10/2023 COVID-19 Vaccine ( season) 2025 06/27/2022, 01/16/2022, 08/18/2021, Additional history exists Influenza Vaccine (#1) 2025 , 06/22/2021, 07/01/2020, Additional history exists DTaP/Tdap/Td [...] on patient's age to complete this topic Meningococcal B Vaccine Aged Out No l onger eligible based on patient's age to complete [...]
--- OUTSIDE RECORDS SUMMARY | 2025-07-12 16:38 | XMS_ITS | Encounter Summary ---
Author Organization [employer] Address [address] [facility] [address] [place] [address] Care Team Providers Care Tree Wrapper Name Role Phone Unavailable Primary Care Provider [...]
--- OUTSIDE RECORDS SUMMARY | 2025-07-12 16:39 | XMS_ITS | Patient Health Record ---
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 the day before the procedure; Duration: 1 day 06/15/2020 Active Valinex Orally PRN Active Multivitamin Active Genvoya Active Tylenol Active Vitamin C Active Immunizations Vaccine Route Administration Date Status Comme nts Influenza Unknown 06/29/2019 Administered Problems Problem Type SNOMED Code ICD Code Onset Dates Problem Status W/U Status Risk Notes Problem Pre-procedure evaluation check (999065346) Encounter for other preprocedural examination (Z01.818) Active confirmed Problem Screening for colon cancer (103230389) Screening for colon cancer (Z12.11) Active confirmed Plan Of Treatment Future Test Test Name Order Date COLONOSCOPY 01/25/2015 COLONOSCOPY 06/15/2020 Next Appt Details Provider Name:Jesse truong Jr, 10/24/2025 01:35:00 PM, [address], [address], [place], [address], Insurance Providers Payer Name Payer Address Payer Phone Subscriber Number Group Number Insured Name Patient Relationship to Insured Coverage Start Date Coverage End Date [facility] [address] [place], [place] [id number] Self - patient is the insured Medical (General) History Medical History History ICD Code HIV infection Surgical History Surgery Date(Month/Year) HPV Lesions
== END 2025-07-12 14:40 | disposition home or self-care (01) ==
LOC: HO.HMCH 13:44
PROVIDERS: PCP Internal Medicine; Visit Provider Internal Medicine
DX: Z00.00 Encounter for general adult medical examination without abnormal findings (principal); B20 Human immunodeficiency virus [HIV] disease; N40.0 Benign prostatic hyperplasia without lower urinary tract symptoms; R97.20 Elevated prostate specific antigen [PSA]; H90.3 Sensorineural hearing loss, bilateral; E78.00 Pure hypercholesterolemia, unspecified; M25.511 Pain in right shoulder

== ENCOUNTER → 2025-07-12 13:43 | Outpatient (BNVA) | payer BC, SELFPAY | PROVIDERS: PCP Internal Medicine; Visit Provider Internal Medicine | DX: Z00.00 Encounter for general adult medical examination without abnormal findings (principal); M25.511 Pain in right shoulder; B20 Human immunodeficiency virus [HIV] disease; N40.0 Benign prostatic hyperplasia without lower urinary tract symptoms; R97.20 Elevated prostate specific antigen [PSA]; H90.3 Sensorineural hearing loss, bilateral; E78.00 Pure hypercholesterolemia, unspecified | CPT/HCPCS: 96127 ==